=== PATIENT | male | born 1935 | race Caucasian/White ===

== ENCOUNTER 2016-09-02 21:25 | Inpatient (IN) | payer MEDICARE ==
[~2016-09-02] VITALS: Ht 162.6 cm; Wt 58.5 kg
[2016-09-02] MEDS ORDERED: CARV6.252 PO (21:38)
[2016-09-02] MEDS ORDERED: HYDR-4075 PO (21:38)
[2016-09-02] MEDS ORDERED: QUET25TA PO (21:38)
[2016-09-02] MEDS ORDERED: ACET325T53 PO (21:38)
[2016-09-02] MEDS ORDERED: FAMO-132 PO (21:38)
[2016-09-02] MEDS ORDERED: ONDA4VIA30 IV (21:38)
[2016-09-02 22:00] VITALS: BP 139/79
[2016-09-02] MEDS ORDERED: LORAZEPAM 0.5 MG TABLET PO PRN (22:30)
[2016-09-02] MEDS ORDERED: TEMAZEPAM 7.5 MG CAPSULE PO PRN (22:30)
[2016-09-02] MEDS ORDERED: MAGNESIUM HYDROXIDE 30 ML LIQUID UDC PO PRN (22:30)
[2016-09-02] MEDS ORDERED: MAG HYDROX/AL HYDROX/SIMETH 30 ML LIQUID UDC PO PRN (22:30)
[2016-09-02] MEDS ORDERED: ACETAMINOPHEN 325 MG TABLET PO PRN (22:30)
[2016-09-02] MEDS ORDERED: hydrALAZINE HCL 10 MG TABLET PO PRN (23:15)
[2016-09-03 07:30] VITALS: BP 135/89
[2016-09-03] MEDS: CARVEDILOL 6.25 MG TABLET PO SCH ×2 (08:56→17:20)
[2016-09-03] MEDS: FAMOTIDINE 20 MG TABLET PO SCH (08:56)
[2016-09-03] MEDS: SERTRALINE HCL 50 MG TABLET PO SCH (12:32)
[2016-09-03 15:18] VITALS: BP 126/89
[2016-09-03 20:00] VITALS: BP 125/78
[2016-09-03] MEDS: DONEPEZIL 5 MG TABLET PO SCH (20:16)
[2016-09-03] MEDS: QUETIAPINE FUMARATE 25 MG TABLET PO SCH (20:17)
[2016-09-04 07:11] LABS: BASOPHILS % (AUTO) 0.3 % (0.0-2.0); EOSINOPHILS # (AUTO) 0.3 K/uL (0.0-0.7); EOSINOPHILS % (AUTO) 2.8 % (0.0-7.0); HEMATOCRIT 42.5 % (40-50); HEMOGLOBIN 13.8 G/DL (14.0-18.0); LYMPHOCYTES # (AUTO) 2.4 K/UL (0.8-4.8); LYMPHOCYTES % (AUTO) 20.8 % (20.5-51.5); MEAN CORPUSCULAR HEMOGLOBIN 28.4 UUG (27.0-31.0); MEAN CORPUSCULAR HGB CONC 33 g/dL (32.0-37.0); MEAN CORPUSCULAR VOLUME 87.5 FL (82.0-92.0); MONOCYTES # (AUTO) 1.2 K/UL (0.1-1.30); MONOCYTES % (AUTO) 10.4 % (0.0-11.0); NEUTROPHILS # (AUTO) 7.6 K/UL (1.8-8.9); NEUTROPHILS % (AUTO) 65.7 % (38.5-71.5); PLATELET COUNT (AUTO) 258 K/UL (150-450); RED BLOOD CELL COUNT(AUTO) 4.86 MIL/UL (4.7-6.1); RED CELL DISTRIBUTION WIDTH 15.5 % (11.5-14.5); WHITE BLOOD COUNT (AUTO) 11.5 K/UL (4.0-11.2)
[2016-09-04 07:30] VITALS: BP 156/101
[2016-09-04 07:34] LABS: THYROID STIMULATING HORMONE 1.987 mIU/mL (0.358-3.740)
[2016-09-04 07:57] LABS: ALBUMIN 3.4 g/dL (3.4-5.0); BILIRUBIN,TOTAL 0.6 mg/dL (0.2-1.0); CALCIUM 9.7 mg/dL (8.5-10.1); CREATININE 1.1 mg/dL (0.6-1.3); MAGNESIUM 1.9 mg/dL (1.8-2.4); PHOSPHOROUS 3.8 mg/dL (2.5-4.9); POTASSIUM 4.2 mmol/L (3.5-5.1); TOTAL PROTEIN, SERUM 7.9 g/dL (6.4-8.2)
[2016-09-04] MEDS: FAMOTIDINE 20 MG TABLET PO SCH (08:16)
[2016-09-04] MEDS: CARVEDILOL 6.25 MG TABLET PO SCH ×2 (08:16→17:34)
[2016-09-04] MEDS: SERTRALINE HCL 50 MG TABLET PO SCH (12:01)
[2016-09-04 15:00] VITALS: BP 117/80
[2016-09-04] MEDS: QUETIAPINE FUMARATE 25 MG TABLET PO SCH (20:06)
[2016-09-04] MEDS: DONEPEZIL 5 MG TABLET PO SCH (20:06)
[2016-09-04 20:15] VITALS: BP 111/61
[2016-09-05 07:30] VITALS: BP 140/94
[2016-09-05] MEDS: CARVEDILOL 6.25 MG TABLET PO SCH ×2 (08:15→17:15)
[2016-09-05] MEDS: FAMOTIDINE 20 MG TABLET PO SCH (08:15)
[2016-09-05] MEDS: SERTRALINE HCL 50 MG TABLET PO SCH (12:49)
[2016-09-05 16:10] VITALS: BP 123/77
[2016-09-05 17:29] LABS: *BILIRUBIN,URIN NEGATIVE (NEGATIVE); *BLOOD, URINE NEGATIVE (NEGATIVE); *COLOR,URINE YELLOW (YELLOW); *KETONES,URINE NEGATIVE (NEGATIVE); *PROTEIN,URINE TRACE (NEGATIVE); *UROBILINOGEN,URINE 0.2 E.U./dl (NORMAL); LEUKOCYTE ESTERASE ,URINE 1+ (NEGATIVE); NITRITE, URINE NEGATIVE (NEGATIVE); UGLUCOSE NEGATIVE (NEGATIVE)
[2016-09-05 17:37] LABS: *CLARITY,URINE SLIGHTLY HAZY (CLEAR)
[2016-09-05 17:42] LABS: BACTERIA,URINE RARE /HPF (NONE SEEN); RBC,URINE 0-3 /HPF (0-3); SQUAMOUS EPITHELIAL CELL,UR FEW /HPF (NONE SEEN)
[2016-09-05] MEDS: DONEPEZIL 5 MG TABLET PO SCH (20:14)
[2016-09-05] MEDS: QUETIAPINE FUMARATE 25 MG TABLET PO SCH (20:14)
[2016-09-05] MEDS: MEMANTINE HCL 5 MG TABLET PO SCH (20:14)
[2016-09-05 20:30] VITALS: BP 136/76
[2016-09-06 07:40] VITALS: BP 135/81
[2016-09-06 08:19] LABS: ALBUMIN 2.8 g/dL (3.4-5.0); BILIRUBIN,TOTAL 0.3 mg/dL (0.2-1.0); CALCIUM 8.7 mg/dL (8.5-10.1); CREATININE 1.3 mg/dL (0.6-1.3); MAGNESIUM 1.8 mg/dL (1.8-2.4); PHOSPHOROUS 3.5 mg/dL (2.5-4.9); POTASSIUM 3.8 mmol/L (3.5-5.1); TOTAL PROTEIN, SERUM 6.7 g/dL (6.4-8.2)
[2016-09-06 08:22] LABS: BASOPHILS % (AUTO) 0.2 % (0.0-2.0); EOSINOPHILS # (AUTO) 0.3 K/uL (0.0-0.7); HEMOGLOBIN 12.1 G/DL (14.0-18.0); LYMPHOCYTES # (AUTO) 2.5 K/UL (0.8-4.8); MEAN CORPUSCULAR HEMOGLOBIN 28.6 UUG (27.0-31.0); MEAN CORPUSCULAR HGB CONC 33 g/dL (32.0-37.0); MEAN CORPUSCULAR VOLUME 86.9 FL (82.0-92.0); MONOCYTES # (AUTO) 0.8 K/UL (0.1-1.30); MONOCYTES % (AUTO) 8.1 % (0.0-11.0); NEUTROPHILS # (AUTO) 6.1 K/UL (1.8-8.9); NEUTROPHILS % (AUTO) 62.7 % (38.5-71.5); PLATELET COUNT (AUTO) 256 K/UL (150-450); RED CELL DISTRIBUTION WIDTH 15.4 % (11.5-14.5); WHITE BLOOD COUNT (AUTO) 9.7 K/UL (4.0-11.2)
[2016-09-06 08:34] LABS: RED BLOOD CELL COUNT(AUTO) 4.22 MIL/UL (4.7-6.1)
[2016-09-06 08:35] LABS: HEMATOCRIT 36.6 % (40-50)
[2016-09-06] MEDS: FAMOTIDINE 20 MG TABLET PO SCH (08:46)
[2016-09-06] MEDS: CARVEDILOL 6.25 MG TABLET PO SCH ×2 (08:46→17:53)
[2016-09-06] MEDS: CEPHALEXIN MONOHYDRATE 500 MG CAPSULE PO SCH ×2 (10:14→20:33)
[2016-09-06] MEDS: SERTRALINE HCL 50 MG TABLET PO SCH (12:27)
[2016-09-06 16:06] VITALS: BP 132/86
[2016-09-06] MEDS: MEMANTINE HCL 5 MG TABLET PO SCH (20:33)
[2016-09-06] MEDS: QUETIAPINE FUMARATE 25 MG TABLET PO SCH (20:33)
[2016-09-06] MEDS: DONEPEZIL 5 MG TABLET PO SCH (20:33)
[2016-09-06 20:38] VITALS: BP 143/94
[2016-09-07 07:30] VITALS: BP 170/87
[2016-09-07] MEDS: CEPHALEXIN MONOHYDRATE 500 MG CAPSULE PO SCH ×2 (08:35→20:11)
[2016-09-07] MEDS: FAMOTIDINE 20 MG TABLET PO SCH (08:35)
[2016-09-07] MEDS: CARVEDILOL 6.25 MG TABLET PO SCH ×2 (08:35→17:35)
[2016-09-07] MEDS: SERTRALINE HCL 50 MG TABLET PO SCH (12:41)
[2016-09-07 16:04] VITALS: BP 111/62
[2016-09-07] MEDS: DONEPEZIL 5 MG TABLET PO SCH (20:10)
[2016-09-07] MEDS: MEMANTINE HCL 5 MG TABLET PO SCH (20:11)
[2016-09-07] MEDS: QUETIAPINE FUMARATE 25 MG TABLET PO SCH (20:11)
[2016-09-07 20:19] VITALS: BP 122/82
[2016-09-08 07:30] VITALS: BP 152/96
[2016-09-08] MEDS: FAMOTIDINE 20 MG TABLET PO SCH (07:53)
[2016-09-08] MEDS: CEPHALEXIN MONOHYDRATE 500 MG CAPSULE PO SCH ×2 (07:53→20:02)
[2016-09-08] MEDS: CARVEDILOL 6.25 MG TABLET PO SCH ×2 (07:54→18:23)
[2016-09-08] MEDS: SERTRALINE HCL 50 MG TABLET PO SCH (13:07)
[2016-09-08 16:00] VITALS: BP 117/84
[2016-09-08 20:02] VITALS: BP 149/93
[2016-09-08] MEDS: DONEPEZIL 5 MG TABLET PO SCH (20:02)
[2016-09-08] MEDS: QUETIAPINE FUMARATE 25 MG TABLET PO SCH (20:02)
[2016-09-08] MEDS: MEMANTINE HCL 5 MG TABLET PO SCH (20:02)
[2016-09-09 07:30] VITALS: BP 147/90
[2016-09-09 08:25] VITALS: BP 142/70
[2016-09-09] MEDS: CARVEDILOL 6.25 MG TABLET PO SCH (08:25)
[2016-09-09] MEDS: FAMOTIDINE 20 MG TABLET PO SCH (08:26)
[2016-09-09] MEDS: CEPHALEXIN MONOHYDRATE 500 MG CAPSULE PO SCH (08:26)
[2016-09-09] MEDS: SERTRALINE HCL 50 MG TABLET PO SCH (13:37)
== END 2016-09-09 13:50 | DRG 885 ==
LOC: ER 21:25 → GPS 21:47
PROVIDERS: ADMIT Psychiatry & Neurology Psychosomatic Medicine; ATTEND Internal Medicine
DX: F29 Unspecified psychosis not due to a substance or known physiological condition (principal); F02.81 Dementia in other diseases classified elsewhere, unspecified severity, with behavioral disturbance; I11.0 Hypertensive heart disease with heart failure; E44.0 Moderate protein-calorie malnutrition; N39.0 Urinary tract infection, site not specified; R45.851 Suicidal ideations; F32.3 Major depressive disorder, single episode, severe with psychotic features; I50.30 Unspecified diastolic (congestive) heart failure; Z73.6 Limitation of activities due to disability; I10 Essential (primary) hypertension; D64.9 Anemia, unspecified; G30.9 Alzheimer's disease, unspecified; R91.8 Other nonspecific abnormal finding of lung field; E67.8 Other specified hyperalimentation; D72.829 Elevated white blood cell count, unspecified; R73.9 Hyperglycemia, unspecified; Z68.22 Body mass index [BMI] 22.0-22.9, adult
CPT/HCPCS: 36415; 71010; 82306; 83735; 84100; 84443; 85025; 87086; 93005; 93307; 97001; A4663

== ENCOUNTER 2016-10-05 17:36 | Emergency (ER) | payer MEDICARE ==
[~2016-10-05] VITALS: Ht 162.6 cm; Wt 59.0 kg
[~2016-10-05 17:36] MED LIST: ACET325T53 PO; CARV6.252 PO; FAMO-132 PO; HYDR-4075 PO; ONDA4VIA30 IV
[2016-10-05] MEDS ORDERED: MEMA10TA PO (18:00)
[2016-10-05] MEDS ORDERED: TEMA7.5C PO (18:00)
[2016-10-05] MEDS ORDERED: SERT25TA PO (18:00)
[2016-10-05] MEDS ORDERED: DONE10TA4 PO (18:00)
[2016-10-05] MEDS ORDERED: MAGN400O4 PO (18:00)
[2016-10-05] MEDS ORDERED: DOCU-170 PO (18:00)
[2016-10-05] MEDS ORDERED: CRAN400C PO (18:00)
[2016-10-05] MEDS ORDERED: ACET-2154 PO (18:00)
--- NOTE | 2016-10-05 18:00 | NUR ---
Assissted DR Copeland for rectal exam, OB collected and sent to lab.
[2016-10-05 18:11] LABS: BASOPHILS # (AUTO) 0.1 K/uL (0.0-8.0); BASOPHILS % (AUTO) 0.5 % (0.0-2.0); EOSINOPHILS # (AUTO) 0.4 K/uL (0.0-0.7); EOSINOPHILS % (AUTO) 2.4 % (0.0-7.0); HEMATOCRIT 36.3 % (40-50); HEMOGLOBIN 12.1 G/DL (14.0-18.0); LYMPHOCYTES # (AUTO) 2.3 K/UL (0.8-4.8); LYMPHOCYTES % (AUTO) 15.5 % (20.5-51.5); MEAN CORPUSCULAR HEMOGLOBIN 29.3 UUG (27.0-31.0); MEAN CORPUSCULAR HGB CONC 33 g/dL (32.0-37.0); MONOCYTES # (AUTO) 1.5 K/UL (0.1-1.30); MONOCYTES % (AUTO) 10.1 % (0.0-11.0); NEUTROPHILS # (AUTO) 10.4 K/UL (1.8-8.9); NEUTROPHILS % (AUTO) 71.5 % (38.5-71.5); PLATELET COUNT (AUTO) 362 K/UL (150-450); RED BLOOD CELL COUNT(AUTO) 4.12 MIL/UL (4.7-6.1); WHITE BLOOD COUNT (AUTO) 14.7 K/UL (4.0-11.2)
--- NOTE | 2016-10-05 18:31 | NUR ---
CALLED [facility] AND SPOKE TO CAYDEN PIRES PT GOING BACK TO FACILITY. CALLED EMR FOR TX, ETA IS 30 MIN. PT IS RESTING IN BED, NO C/O PAIN.
[2016-10-05 18:43] LABS: *OCCULT BLOOD STOOL NEGATIVE (NEGATIVE)
--- NOTE | 2016-10-05 19:04 | NUR ---
Patient discharged to home via AMBULANCE in stable conditon. Written and verbal after care instructions given. Patient verbalizes understanding of instructions. Report given to EMT.
== END 2016-10-05 19:06 | disposition home or self-care (01) ==
LOC: ER 17:38
DX: K64.9 Unspecified hemorrhoids (principal); F03.90 Unspecified dementia, unspecified severity, without behavioral disturbance, psychotic disturbance, mood disturbance, and anxiety; I10 Essential (primary) hypertension; F32.9 Major depressive disorder, single episode, unspecified
CPT/HCPCS: 36415; 85025; A4663

== ENCOUNTER 2017-03-27 19:12 | Inpatient (IN) | payer MEDICARE ==
[~2017-03-27] VITALS: Ht 165.1 cm; Wt 57.2 kg
[~2017-03-27 19:12] MED LIST changes: +ACET-2154 PO; +CRAN400C PO; +DOCU100C36 PO; +DONE10TA11 PO; -HYDR-4075 PO; +MAGN400O6 PO; +MEMA10TA PO; -ONDA4VIA30 IV; +SERT25TA PO; +TEMA7.5C PO
--- NOTE | 2017-03-27 19:52 | NUR ---
Patient BIB private ambulance from [facility] for abnormal labs. Per report, patient has ESBL in urine, facility paperwork indicates as well. Patient states no pain or complaint at this time except he has "anal pain." To room 5A.
[2017-03-27] MEDS ORDERED: IV NORMAL SALINE 500 ML BAG IV ONE (20:00)
[2017-03-27 20:34] LABS: BASOPHILS % (AUTO) 0.4 % (0.0-2.0); EOSINOPHILS # (AUTO) 0.2 K/uL (0.0-0.7); EOSINOPHILS % (AUTO) 2.1 % (0.0-7.0); HEMATOCRIT 32.9 % (40-50); HEMOGLOBIN 10.6 G/DL (14.0-18.0); LYMPHOCYTES # (AUTO) 2.8 K/UL (0.8-4.8); LYMPHOCYTES % (AUTO) 24.6 % (20.5-51.5); MEAN CORPUSCULAR HEMOGLOBIN 25.1 UUG (27.0-31.0); MEAN CORPUSCULAR HGB CONC 32 g/dL (32.0-37.0); MEAN CORPUSCULAR VOLUME 78.2 FL (82.0-92.0); MONOCYTES # (AUTO) 1.3 K/UL (0.1-1.30); MONOCYTES % (AUTO) 11.5 % (0.0-11.0); NEUTROPHILS # (AUTO) 7.1 K/UL (1.8-8.9); NEUTROPHILS % (AUTO) 61.4 % (38.5-71.5); PLATELET COUNT (AUTO) 420 K/UL (150-450); WHITE BLOOD COUNT (AUTO) 11.4 K/UL (4.0-11.2)
[2017-03-27 20:38] LABS: CARBON DIOXIDE 29 mmol/L (21-32); CHLORIDE 100 mmol/L (98-107); CREATININE 1.2 mg/dL (0.6-1.3); GLUCOSE 99 mg/dL (74-106); POTASSIUM 3.9 mmol/L (3.5-5.1); UREA NITROGEN, BLOOD 19 mg/dL (7-18)
[2017-03-27 20:44] LABS: ALANINE AMINOTRANSFERASE 18 U/L (16-63); ALKALINE PHOSPHATASE 138 U/L (50-136); ASPARTATE AMINOTRANSFERASE 20 U/L (15-37); BILIRUBIN,DIRECT 0.1 mg/dL (0.0-0.2); BILIRUBIN,TOTAL 0.2 mg/dL (0.2-1.0); TOTAL PROTEIN, SERUM 6.9 g/dL (6.4-8.2)
[2017-03-27 20:50] LABS: *BILIRUBIN,URIN NEGATIVE (NEGATIVE); *BLOOD, URINE 1+ (NEGATIVE); *CLARITY,URINE CLOUDY (CLEAR); *COLOR,URINE YELLOW (YELLOW); *KETONES,URINE NEGATIVE (NEGATIVE); *PROTEIN,URINE NEGATIVE (NEGATIVE); *UROBILINOGEN,URINE 0.2 E.U./dl (NORMAL); LEUKOCYTE ESTERASE ,URINE 3+ (NEGATIVE); NITRITE, URINE POSITIVE (NEGATIVE); UGLUCOSE NEGATIVE (NEGATIVE)
[2017-03-27 21:08] LABS: BACTERIA,URINE MANY /HPF (NONE SEEN); WBC,URINE 80-100 /HPF (0-3)
--- NOTE | 2017-03-27 21:25 | NUR ---
Patient provided urine specimen, patient was soiled at that time. During cleaning observed patient had rash throughout perineum (front and back) which was covered in cream. Patient additionally had tissue stuck in the daiper in the trip-anal area. Patient cleaned and dressed in hoispital gown at this time.
[2017-03-27] MEDS ORDERED: IMIPENEM/CILASTATIN SODIUM 1,000 MG in IV NORMAL SALINE 250 ML IV ONE (21:30)
[2017-03-27] MEDS ORDERED: FERR325T28 PO (21:37)
[2017-03-27] MEDS ORDERED: AMIN30LI2 PO (21:37)
[2017-03-27] MEDS ORDERED: CRAN405C PO (21:37)
[2017-03-27] MEDS ORDERED: HYDROCODONE/APAP 5-325MG TABLET PO PRN (22:15)
[2017-03-27] MEDS ORDERED: MAGNESIUM HYDROXIDE 30 ML LIQUID UDC PO PRN (22:15)
[2017-03-27] MEDS ORDERED: Z GUARD REMEDY PASTE 57 GM TUBE TOP PRN (22:15)
[2017-03-27] MEDS ORDERED: ACETAMINOPHEN 325 MG TABLET PO PRN ×3 (22:15)
[2017-03-27] MEDS ORDERED: ONDANSETRON 4 MG/2 ML VIAL IV PRN (22:15)
[2017-03-27] MEDS ORDERED: MEROPENEM 1 G VIAL IV ONE (22:42)
[2017-03-27] MEDS ORDERED: MEROPENEM 1,000 MG in IV NORMAL SALINE 250 ML IV ONE (22:45)
--- NOTE | 2017-03-27 23:00 | NUR ---
Pt. admitted to TELE, under care of Dr. Matos Belongs List completed
--- NOTE | 2017-03-27 23:15 | NUR ---
Pt arrived alert awake oriented to self and . in telemetry sinus rhythm. Pt noted BP 172/69. No s/s of acute distress. Pt noted with redness to sacral and groin area. Able to follow simple commands. Awaiting MD orders. Continuing or Merrem IV antibiotics from ER. Denies pain or discomfort at this time. 2 side rails raised and call light placed within reach.
[2017-03-28 00:03] VITALS: BP 172/96
--- NOTE | 2017-03-28 00:44 | NUR ---
New order received from Dr Kilgore. Clonidine 0.1mg PO x 1. noted and carried out.
[2017-03-28] MEDS ORDERED: CLONIDINE HCL 0.1 MG TABLET PO ONE (00:45)
[2017-03-28] MEDS: IV NS 1000 ML 1,000 ML IV PRN (03:50)
[2017-03-28] MEDS ORDERED: MEROPENEM 1 G VIAL IV ONE (05:42)
[2017-03-28] MEDS ORDERED: MEROPENEM 1 G in IV NORMAL SALINE 100 ML IV SCH (06:00)
[2017-03-28 06:58] LABS: BASOPHILS % (AUTO) 0.4 % (0.0-2.0); EOSINOPHILS # (AUTO) 0.2 K/uL (0.0-0.7); EOSINOPHILS % (AUTO) 2.4 % (0.0-7.0); HEMATOCRIT 31.6 % (36.7-47.1); HEMOGLOBIN 10.1 g/dL (12.5-16.3); LYMPHOCYTES # (AUTO) 3.2 K/uL (20.0-40.0); LYMPHOCYTES % (AUTO) 30.3 % (20.5-51.5); MEAN CORPUSCULAR HEMOGLOBIN 24.7 uug (23.8-33.4); MEAN CORPUSCULAR HGB CONC 32 g/dL (32.5-36.3); MEAN CORPUSCULAR VOLUME 77.6 fL (73.0-96.2); MONOCYTES # (AUTO) 1.4 K/uL (2.0-10.0); MONOCYTES % (AUTO) 13.1 % (0.0-11.0); NEUTROPHILS # (AUTO) 5.6 K/uL (1.8-8.9); NEUTROPHILS % (AUTO) 53.8 % (38.5-71.5); PLATELET COUNT (AUTO) 349 K/uL (152-348); RED BLOOD CELL COUNT(AUTO) 4.08 MIL/uL (4.06-5.63); WHITE BLOOD COUNT (AUTO) 10.5 K/uL (3.6-10.2)
[2017-03-28 07:23] LABS: CARBON DIOXIDE 27 mmol/L (21-32); CHLORIDE 102 mmol/L (98-107); CREATININE 0.9 mg/dL (0.6-1.3); GLUCOSE 82 mg/dL (74-106); PHOSPHOROUS 3.7 mg/dL (2.5-4.9); POTASSIUM 3.7 mmol/L (3.5-5.1); UREA NITROGEN, BLOOD 15 mg/dL (7-18)
[2017-03-28] MEDS: PROTEIN SUPPLEMENT (PROSTAT) 30 ML LIQUID PO SCH ×2 (08:00→17:25)
[2017-03-28] MEDS: SERTRALINE HCL 50 MG TABLET PO SCH (08:10)
[2017-03-28] MEDS: FAMOTIDINE 20 MG TABLET PO SCH (08:10)
[2017-03-28] MEDS: CARVEDILOL 6.25 MG TABLET PO SCH ×2 (08:11→17:05)
[2017-03-28] MEDS ORDERED: Medication Not On Formulary EA (Amino Acids/Protein Hydrolys (Pro-Stat Liquid) 30 ML) PO SCH (09:00)
[2017-03-28] MEDS ORDERED: Medication Not On Formulary EA (Sertraline Hcl (Zoloft) 1 TAB) PO SCH (09:00)
[2017-03-28] MEDS ORDERED: Medication Not On Formulary EA (Cranberry Extract (Cranberry) 405 MG) PO SCH (09:00)
[2017-03-28 11:00] VITALS: BP 117/73
--- NOTE | 2017-03-28 13:41 | NUR ---
WOUND CARE CONSULT: PT AMBULATES TO BATHROOM PER NURSING STAFF BUT INCONTINENT AT TIMES. VERY RED RASH NOTED TO PERINEUM, GROIN AREAS AND BUTTOCKS, PRESENT ON ADMISSION. RECOMMENDATIONS MADE FOR CARE OF RASH AND SKIN PROTECTION. DISCUSSED WITH NURSING STAFF. WILL SEE PRN. LLOYD IN AGREEMENT WITH PLAN OF CARE. Addendum: 03/28/17 at 1342 by CHANDANA ALVAREZ RN Amended: Links added.
[2017-03-28] MEDS: MEROPENEM 1 G in IV NORMAL SALINE 100 ML IV SCH ×2 (14:37→21:42)
[2017-03-28] MEDS: CLOTRIMAZOLE/BETAMET DIPROP CREAM 15 GM TUBE TOP SCH ×2 (14:38→21:42)
[2017-03-28 15:28] VITALS: BP 145/79
[2017-03-28] MEDS: FERROUS SULFATE 325 MG TABEC PO SCH (17:03)
--- NOTE | 2017-03-28 17:36 | NUR ---
PT CONFUSED, AOX1, AMBULATORY, ON FALL PRECAUTIONS, BED AT LOWEST LOCKED POSITION, BED ALARM SET. PT HAS HAD SEVERAL BM ON THE FLOOR, ONE OF THE BM HAD BLOOD IN STOOL, DOCTOR NOTIFIED AND STOOL FOR OB SENT, RESULTS PENDING. PT IS REORIENTED CONSTANTLY. WOUND CARE NURSE CAME AND EVALUATED THE PT, WOUND CARE DONE ORDERED.
[2017-03-28 19:30] VITALS: BP 146/85
--- NOTE | 2017-03-28 19:30 | NUR ---
Pt in room alert with confusion. No s/s of acute distress. Able to follow simple commands. Pt needs constant reminders and reorientation. No new orders at this time. 3 side rails raised and bed locked. Denies any pain or discomfort at his time. Continue to monitor.
[2017-03-28] MEDS: MEMANTINE HCL 10 MG TABLET PO SCH (21:41)
[2017-03-28] MEDS: DONEPEZIL 10 MG TABLET PO SCH (21:41)
--- NOTE | 2017-03-29 01:00 | NUR ---
Pt in room asleep in no acute distress. No reaction to current Merrem IV abx. No active loose BM at this time. Continue to monitor. Bed alarm on.
[2017-03-29] MEDS: IV NS 1000 ML 1,000 ML IV PRN (02:05)
[2017-03-29] MEDS: MEROPENEM 1 G in IV NORMAL SALINE 100 ML IV SCH ×3 (05:26→21:00)
[2017-03-29 07:10] LABS: *OCCULT BLOOD STOOL POSITIVE (NEGATIVE)
--- NOTE | 2017-03-29 08:00 | NUR ---
Fall precaution and isolation precaution for esbl urine implemented. Bed alarm on pt near nursing station. IV on left wrist #22 intact. Call light is within reach.
[2017-03-29] MEDS: FAMOTIDINE 20 MG TABLET PO SCH (08:37)
[2017-03-29] MEDS: SERTRALINE HCL 50 MG TABLET PO SCH (08:37)
[2017-03-29] MEDS: FERROUS SULFATE 325 MG TABEC PO SCH ×2 (08:37→16:03)
[2017-03-29] MEDS: CLOTRIMAZOLE/BETAMET DIPROP CREAM 15 GM TUBE TOP SCH ×2 (08:42→20:26)
[2017-03-29] MEDS: CARVEDILOL 6.25 MG TABLET PO SCH ×2 (08:42→16:03)
[2017-03-29] MEDS: PROTEIN SUPPLEMENT (PROSTAT) 30 ML LIQUID PO SCH ×2 (08:43→16:03)
--- NOTE | 2017-03-29 09:00 | NUR ---
Applied lotrisone cream as ordered by wound care nurse. Groin and buttocks were both bright red. Instructed COMPUTATIONAL CHEMIST to keep skin dry at all times. Established hourly rounding on pt. PT is in no acute distress. PT forgetful at times. Call light is within reach.
[2017-03-29 11:14] VITALS: BP 115/70
[2017-03-29 15:38] VITALS: BP 131/77
--- NOTE | 2017-03-29 17:02 | NUR ---
Pt is in no acute distress. PT cooperative with treatments and taking his medications. PT denies any c/o pain. Call light is within reach.
[2017-03-29 19:25] VITALS: BP 154/91
--- NOTE | 2017-03-29 19:30 | NUR ---
Pt in alert awake in room needing constant reorientation. No s/s of acute distress. Bed alarm on with 3 side rails up. Denies any pain or discomfort at this time.
[2017-03-29] MEDS: MEMANTINE HCL 10 MG TABLET PO SCH (20:25)
[2017-03-29] MEDS: DONEPEZIL 10 MG TABLET PO SCH (20:25)
[2017-03-30] MEDS: IV NS 1000 ML 1,000 ML IV PRN (00:46)
--- NOTE | 2017-03-30 01:00 | NUR ---
Pt asleep at this time. No reaction to current IV abx therapy. Continue to monitor.
[2017-03-30 04:00] VITALS: BP 146/80
--- NOTE | 2017-03-30 05:00 | NUR ---
Pt in room in no acute distress. No s/s of increased weakness to upper or lower extremities. Continue to monitor. Currently on Merrem IV abx. Bed alarm on.
[2017-03-30] MEDS: MEROPENEM 1 G in IV NORMAL SALINE 100 ML IV SCH ×2 (05:08→14:09)
[2017-03-30] MEDS: SERTRALINE HCL 50 MG TABLET PO SCH (09:02)
[2017-03-30] MEDS: FAMOTIDINE 20 MG TABLET PO SCH (09:02)
[2017-03-30] MEDS: FERROUS SULFATE 325 MG TABEC PO SCH ×2 (09:02→17:32)
[2017-03-30] MEDS: PROTEIN SUPPLEMENT (PROSTAT) 30 ML LIQUID PO SCH ×2 (09:03→17:35)
[2017-03-30] MEDS: CLOTRIMAZOLE/BETAMET DIPROP CREAM 15 GM TUBE TOP SCH (09:04)
[2017-03-30] MEDS: CARVEDILOL 6.25 MG TABLET PO SCH ×2 (09:04→17:37)
[2017-03-30 11:09] VITALS: BP 128/68
[2017-03-30 15:09] VITALS: BP 119/75
[2017-03-30 15:54] LABS: BASOPHILS % (AUTO) 0.2 % (0.0-2.0); EOSINOPHILS # (AUTO) 0.2 K/uL (0.0-0.7); EOSINOPHILS % (AUTO) 1.5 % (0.0-7.0); HEMATOCRIT 31.1 % (40-50); HEMOGLOBIN 9.9 G/DL (14.0-18.0); LYMPHOCYTES # (AUTO) 2.4 K/UL (0.8-4.8); LYMPHOCYTES % (AUTO) 20.2 % (20.5-51.5); MEAN CORPUSCULAR HEMOGLOBIN 25.1 UUG (27.0-31.0); MEAN CORPUSCULAR HGB CONC 32 g/dL (32.0-37.0); MEAN CORPUSCULAR VOLUME 78.9 FL (82.0-92.0); MONOCYTES # (AUTO) 1.2 K/UL (0.1-1.30); MONOCYTES % (AUTO) 10.1 % (0.0-11.0); NEUTROPHILS # (AUTO) 8.1 K/UL (1.8-8.9); PLATELET COUNT (AUTO) 413 K/UL (150-450); RED BLOOD CELL COUNT(AUTO) 3.95 MIL/UL (4.7-6.1); WHITE BLOOD COUNT (AUTO) 11.9 K/UL (4.0-11.2)
[2017-03-30 17:37] VITALS: BP 171/95
--- NOTE | 2017-03-30 18:32 | NUR ---
Patient been discharge home in safe and stable conditions. No s/s of distress noted. No c/o of pain. Patient was was cooperative with the treatment and interventions. Discharge instructions were signed. IV was kept per facility request to continue antibiotics. Patient was picked up by ambulance in stable conditions. Report was given to [facility]. All his need were met by the staff.
== END 2017-03-30 18:38 | DRG 689 ==
LOC: ER 19:13 → TELE 22:48 → MED 03-28 18:06
PROVIDERS: ADMIT Internal Medicine; ATTEND Internal Medicine
DX: N39.0 Urinary tract infection, site not specified (principal); G92 Toxic encephalopathy; K92.2 Gastrointestinal hemorrhage, unspecified; F03.90 Unspecified dementia, unspecified severity, without behavioral disturbance, psychotic disturbance, mood disturbance, and anxiety; D50.9 Iron deficiency anemia, unspecified; F41.9 Anxiety disorder, unspecified; F32.9 Major depressive disorder, single episode, unspecified; K21.9 Gastro-esophageal reflux disease without esophagitis; K59.09 Other constipation; Z16.12 Extended spectrum beta lactamase (ESBL) resistance; Z79.899 Other long term (current) drug therapy; R53.1 Weakness; I10 Essential (primary) hypertension; M19.90 Unspecified osteoarthritis, unspecified site
CPT/HCPCS: 36415; 70030-TC; 71010; 83605; 83735; 84100; 85025; 85730; 87040; 87086; 93005; 97116; 97530; A4663; J0743; J2185; J3490; J7030; J7040; J7050

== ENCOUNTER 2017-04-10 13:14 | Inpatient (IN) | payer MEDICARE ==
[~2017-04-10] VITALS: Ht 167.6 cm; Wt 54.4 kg
[~2017-04-10 13:14] MED LIST changes: +AMIN30LI2 PO; -CRAN400C PO; +CRAN405C PO; -DOCU100C36 PO; +FERR325T28 PO; -TEMA7.5C PO
[2017-04-10] MEDS ORDERED: DOCU100T2 PO (13:26)
--- NOTE | 2017-04-10 14:00 | NUR ---
Dr Rojas performed rectal exam on pt, hemostat stool sample collected by , sent to LAB.
[2017-04-10 14:02] LABS: BASOPHILS % (AUTO) 0.3 % (0.0-2.0); EOSINOPHILS # (AUTO) 0.3 K/uL (0.0-0.7); EOSINOPHILS % (AUTO) 2.1 % (0.0-7.0); HEMATOCRIT 35.6 % (36.7-47.1); HEMOGLOBIN 11.4 g/dL (12.5-16.3); LYMPHOCYTES # (AUTO) 2.9 K/uL (20.0-40.0); LYMPHOCYTES % (AUTO) 23.1 % (20.5-51.5); MEAN CORPUSCULAR HEMOGLOBIN 25.6 uug (23.8-33.4); MEAN CORPUSCULAR HGB CONC 32 g/dL (32.5-36.3); MEAN CORPUSCULAR VOLUME 80.3 fL (73.0-96.2); MONOCYTES # (AUTO) 1.9 K/uL (2.0-10.0); MONOCYTES % (AUTO) 15.3 % (0.0-11.0); NEUTROPHILS # (AUTO) 7.3 K/uL (1.8-8.9); NEUTROPHILS % (AUTO) 59.2 % (38.5-71.5); PLATELET COUNT (AUTO) 375 K/uL (152-348); RED BLOOD CELL COUNT(AUTO) 4.43 MIL/uL (4.06-5.63); WHITE BLOOD COUNT (AUTO) 12.4 K/uL (3.6-10.2)
[2017-04-10 14:15] LABS: *OCCULT BLOOD STOOL POSITIVE (NEGATIVE)
[2017-04-10 14:20] LABS: CARBON DIOXIDE 29 mmol/L (21-32); CHLORIDE 100 mmol/L (98-107); CREATININE 1.1 mg/dL (0.6-1.3); GLUCOSE 91 mg/dL (74-106); POTASSIUM 3.8 mmol/L (3.5-5.1); UREA NITROGEN, BLOOD 20 mg/dL (7-18)
[2017-04-10 14:25] LABS: ALANINE AMINOTRANSFERASE 14 U/L (16-63); ALKALINE PHOSPHATASE 149 U/L (50-136); ASPARTATE AMINOTRANSFERASE 16 U/L (15-37); BILIRUBIN,DIRECT 0.1 mg/dL (0.0-0.2); BILIRUBIN,TOTAL 0.4 mg/dL (0.2-1.0); LIPASE 99 U/L (73-393); TOTAL PROTEIN, SERUM 6.9 g/dL (6.4-8.2)
[2017-04-10 14:31] LABS: BAND % (MANUAL) 8 % (0-10); EOSINOPHILS % (MANUAL) 4 % (0-8); LYMPHOCYTES % (MANUAL) 25 % (20-40); MONOCYTES % (MANUAL) 12 % (2-10); NEUTROPHILS % (MANUAL) 51 % (42-75)
[2017-04-10] MEDS ORDERED: ONDANSETRON 4 MG/2 ML VIAL IV PRN (15:15)
[2017-04-10] MEDS ORDERED: PANTOPRAZOLE SODIUM 40 MG VIAL IV ONE (15:15)
--- NOTE | 2017-04-10 15:15 | NUR ---
PT REFUSED PROTONIX BUT AGREED TO TAKE THE 2100 DOSE LATER ON [facility].
--- NOTE | 2017-04-10 15:15 | NUR ---
belonging list completed, and placed in the chart. MRSA swab collected and send to lab.
--- NOTE | 2017-04-10 15:28 | NUR ---
PT ARRIVED ON THE UNIT CALM, COOPERATIVE, AOX1, CONFUSED, VITAL SIGNS STABLE. BROUGHT IN BELONGINGS, PT CAME IN FROM [facility]. PT SHOWS NO SIGNS OF DISTRESS. PICTURES OF SKIN WERE TAKEN AND PLACED INTO CHART. PT NPO PER DOCTORS ORDER.
[2017-04-10 15:35] VITALS: BP 147/91
[2017-04-10] MEDS: IV NS 1000 ML 1,000 ML IV PRN (18:21)
--- NOTE | 2017-04-10 18:54 | NUR ---
PT IS OBSERVED RESTING, HAS NS RUNNING, GAUGE IS INTACT AND PATENT, PT IS AOX1 BUT CAN ANSWER SIMPLE QUESTIONS. PT IS NPO BECAUSE PT MAY HAVE A EGD OR COLONOSCOPY DONE. PT HAS NO SIGNS OF RESPIRATORY DISTRESS AT THIS TIME. VITAL SIGNS STABLE.
[2017-04-10 20:00] VITALS: BP 153/95
--- NOTE | 2017-04-10 20:00 | NUR ---
RECEIVED PATIENT ASLEEP IN BED. NO S/S OF PAIN OR DISCOMFORT. NO FACIAL GRIMACE NOTED. NO RESP. DISTRESS NOTED. IVF INFUSING WELL TO RIGHT FA. ON TELE SR WITH FREQUENT PVC'S. BED ALARM ON. CALL LIGHT IN REACH. ALL NEEDS ATTENDED. WILL CONTINUE TO MONITOR AND ASSESS.
[2017-04-10] MEDS: PANTOPRAZOLE SODIUM 40 MG VIAL IV SCH (20:59)
[2017-04-11 00:18] VITALS: BP 132/82
--- NOTE | 2017-04-11 03:00 | NUR ---
PATIENT AWAKE IN BED, DIAPER CHANGE AND SKIN CARE PROVIDED. PATIENT URINATED AND HAD LOOSE BM. SOME BLOOD NOTED IN DIAPER. WILL CONTINUE TO MONITOR. ALL NEEDS ATTENDED.
[2017-04-11 04:00] VITALS: BP 126/92
[2017-04-11] MEDS: IV NS 1000 ML 1,000 ML IV PRN ×2 (05:02→18:47)
--- NOTE | 2017-04-11 06:00 | NUR ---
IV HEPLOCK NOTED TO RIGHT FA, LEAKING AND INFILTRATED. REMOVED AND NEW IV H/L STARTED TO RIGHT WRIST #20 GAUGE. VSS. PATIENT SLEPT WELL THROUGHOUT THE NIGHT. DENIES PAIN OR DISCOMFORT. NO RESP. DISTRESS NOTED. ON TELE SR WITH FREQUENT PVC'S. BED ALARM ON. CALL LIGHT IN REACH. ALL NEEDS ATTENDED.
[2017-04-11 06:15] LABS: BASOPHILS # (AUTO) 0.1 K/uL (0.0-8.0); BASOPHILS % (AUTO) 0.6 % (0.0-2.0); EOSINOPHILS # (AUTO) 0.3 K/uL (0.0-0.7); EOSINOPHILS % (AUTO) 2.4 % (0.0-7.0); HEMOGLOBIN 10.6 g/dL (12.5-16.3); LYMPHOCYTES % (AUTO) 25.4 % (20.5-51.5); MEAN CORPUSCULAR HEMOGLOBIN 25.6 uug (23.8-33.4); MEAN CORPUSCULAR HGB CONC 32 g/dL (32.5-36.3); MEAN CORPUSCULAR VOLUME 79.9 fL (73.0-96.2); MONOCYTES # (AUTO) 1.6 K/uL (2.0-10.0); MONOCYTES % (AUTO) 13.1 % (0.0-11.0); NEUTROPHILS % (AUTO) 58.5 % (38.5-71.5); PLATELET COUNT (AUTO) 354 K/uL (152-348); RED BLOOD CELL COUNT(AUTO) 4.12 MIL/uL (4.06-5.63)
[2017-04-11 06:31] LABS: BILIRUBIN,DIRECT 0.2 mg/dL (0.0-0.2); BILIRUBIN,TOTAL 0.4 mg/dL (0.2-1.0)
[2017-04-11 07:16] LABS: *BILIRUBIN,URIN NEGATIVE (NEGATIVE); *BLOOD, URINE 2+ (NEGATIVE); *CLARITY,URINE CLEAR (CLEAR); *COLOR,URINE YELLOW (YELLOW); *KETONES,URINE NEGATIVE (NEGATIVE); *PROTEIN,URINE 1+ (NEGATIVE); *UROBILINOGEN,URINE 0.2 E.U./dl (NORMAL); LEUKOCYTE ESTERASE ,URINE 1+ (NEGATIVE); NITRITE, URINE NEGATIVE (NEGATIVE); UGLUCOSE NEGATIVE (NEGATIVE)
[2017-04-11 07:32] LABS: BACTERIA,URINE FEW /HPF (NONE SEEN); SQUAMOUS EPITHELIAL CELL,UR FEW /HPF (NONE SEEN)
--- NOTE | 2017-04-11 07:39 | NUR ---
Awake, alert, pleasant. IVF infusing. NPO reinstructed. Bed alarm on
[2017-04-11] MEDS: PANTOPRAZOLE SODIUM 40 MG VIAL IV SCH ×2 (08:32→20:02)
[2017-04-11 11:10] VITALS: BP 147/93
[2017-04-11] MEDS ORDERED: NYSTATIN POWDER 15 GM BOTTLE TOP SCH (12:30)
--- NOTE | 2017-04-11 13:00 | NUR ---
Noted bloody loose stool, patient got up , attempted to go the bathroom. Assisted back to bed. Incontinence care done. Noted excoriation of perianal area. With orders for Nystatin cream, applied
[2017-04-11] MEDS: NYSTATIN CREAM 30 GM TUBE TOP SCH ×2 (14:05→20:03)
[2017-04-11 15:19] VITALS: BP 134/92
--- NOTE | 2017-04-11 18:00 | NUR ---
Called Dr. Christensen to follow up GI consult, will see patient tomorrow.Clear liquid diet started.
[2017-04-11 20:00] VITALS: BP 121/74
[2017-04-12 05:43] VITALS: BP 116/73
--- NOTE | 2017-04-12 06:40 | NUR ---
nsg: no acute distress noted. denies discomfort. started on clear liq last night. had 2 episodes of bowel movement, loose, mucoid, with tinged of red blood. cont to monitor.
--- NOTE | 2017-04-12 08:00 | NUR ---
AWAKE CONFUSED FORGETFUL BUT ABLE TO FOLLOW SOME SIMPLE DIRECTION NO SOB OR PAIN ON FALL ;/ASPIRATION PRECAUTION BED ALARM ON AND CALL LIGHT IN REACH
[2017-04-12] MEDS: PANTOPRAZOLE SODIUM 40 MG VIAL IV SCH ×2 (08:44→20:26)
[2017-04-12] MEDS: ACETAMINOPHEN 325 MG TABLET PO PRN (08:44)
[2017-04-12] MEDS: NYSTATIN CREAM 30 GM TUBE TOP SCH ×2 (08:45→20:26)
[2017-04-12] MEDS: Z GUARD REMEDY PASTE 57 GM TUBE TOP PRN (08:45)
[2017-04-12] MEDS: IV NS 1000 ML 1,000 ML IV PRN ×2 (09:00→20:24)
[2017-04-12 10:37] LABS: IRON, SERUM 52 ug/dL (50-175)
[2017-04-12 11:14] LABS: BASOPHILS % (AUTO) 0.3 % (0.0-2.0); EOSINOPHILS # (AUTO) 0.3 K/uL (0.0-0.7); EOSINOPHILS % (AUTO) 2.1 % (0.0-7.0); HEMATOCRIT 33.1 % (36.7-47.1); HEMOGLOBIN 10.6 g/dL (12.5-16.3); LYMPHOCYTES # (AUTO) 2.6 K/uL (20.0-40.0); LYMPHOCYTES % (AUTO) 19.9 % (20.5-51.5); MEAN CORPUSCULAR HGB CONC 32 g/dL (32.5-36.3); MEAN CORPUSCULAR VOLUME 81.6 fL (73.0-96.2); MONOCYTES # (AUTO) 1.2 K/uL (2.0-10.0); MONOCYTES % (AUTO) 9.5 % (0.0-11.0); NEUTROPHILS % (AUTO) 68.2 % (38.5-71.5); PLATELET COUNT (AUTO) 342 K/uL (152-348); RED BLOOD CELL COUNT(AUTO) 4.05 MIL/uL (4.06-5.63); WHITE BLOOD COUNT (AUTO) 13.2 K/uL (3.6-10.2)
[2017-04-12] MEDS: CEFTRIAXONE 1 G in IV DEXTROSE 5% 50 ML IV SCH (11:46)
[2017-04-12 11:50] LABS: ALANINE AMINOTRANSFERASE 12 U/L (16-63); ALKALINE PHOSPHATASE 125 U/L (50-136); ASPARTATE AMINOTRANSFERASE 24 U/L (15-37); BILIRUBIN,TOTAL 0.4 mg/dL (0.2-1.0); CARBON DIOXIDE 22 mmol/L (21-32); CHLORIDE 104 mmol/L (98-107); CREATININE 1.2 mg/dL (0.6-1.3); GLUCOSE 151 mg/dL (74-106); MAGNESIUM 1.8 mg/dL (1.8-2.4); PHOSPHOROUS 2.9 mg/dL (2.5-4.9); POTASSIUM 3.5 mmol/L (3.5-5.1); TOTAL PROTEIN, SERUM 5.7 g/dL (6.4-8.2); UREA NITROGEN, BLOOD 13 mg/dL (7-18)
[2017-04-12 12:00] VITALS: BP 113/67
[2017-04-12] MEDS ORDERED: Medication Not On Formulary EA (Docusate Sodium 100 MG) PO SCH (15:30)
[2017-04-12] MEDS ORDERED: Medication Not On Formulary EA (Sertraline Hcl (Zoloft) 1 TAB) PO SCH (15:30)
[2017-04-12 16:18] VITALS: BP 122/74
--- NOTE | 2017-04-12 18:00 | NUR ---
HEMODYNAMIC STATUS STABLE PAIN UNDER CONTROL SAFETY MEASURE PROVIDED CALL LIGHT IN REACH AND BED ALARM ON
--- NOTE | 2017-04-12 20:00 | NUR ---
RECEIVED PATIENT AWAKE IN BED. A/O X2, BUT VERY FORGETFUL. DENIES PAIN OR DISCOMFORT. NO RESP. DISTRESS NOTED. IVF INFUSING WELL TO RIGHT WRIST. PATIENT ON CLEAR LIQUIDS. CALL LIGHT IN REACH. ALL NEEDS ATTENDED. WILL CONTINUE TO MONITOR AND ASSESS.
[2017-04-12] MEDS: DONEPEZIL 10 MG TABLET PO SCH (20:25)
[2017-04-12] MEDS: MEMANTINE HCL 10 MG TABLET PO SCH (20:25)
[2017-04-12 21:01] VITALS: BP 146/85
[2017-04-13 04:00] VITALS: BP 121/97
--- NOTE | 2017-04-13 06:35 | NUR ---
PATIENT AWAKE IN BED. SLEPT WELL. DENIES PAIN. IVF INFUSING WELL. VSS. BED ALARM ON. CALL LIGHT IN REACH. ALL NEEDS ATTENDED. WILL CONTINUE TO MONITOR.
[2017-04-13 07:08] LABS: BASOPHILS % (AUTO) 0.2 % (0.0-2.0); EOSINOPHILS # (AUTO) 0.5 K/uL (0.0-0.7); EOSINOPHILS % (AUTO) 4.3 % (0.0-7.0); HEMATOCRIT 32.7 % (36.7-47.1); HEMOGLOBIN 10.6 g/dL (12.5-16.3); LYMPHOCYTES # (AUTO) 2.4 K/uL (20.0-40.0); LYMPHOCYTES % (AUTO) 20.9 % (20.5-51.5); MEAN CORPUSCULAR HGB CONC 33 g/dL (32.5-36.3); MEAN CORPUSCULAR VOLUME 79.9 fL (73.0-96.2); MONOCYTES # (AUTO) 1.2 K/uL (2.0-10.0); MONOCYTES % (AUTO) 10.4 % (0.0-11.0); NEUTROPHILS # (AUTO) 7.4 K/uL (1.8-8.9); NEUTROPHILS % (AUTO) 64.2 % (38.5-71.5); PLATELET COUNT (AUTO) 341 K/uL (152-348); RED BLOOD CELL COUNT(AUTO) 4.09 MIL/uL (4.06-5.63); WHITE BLOOD COUNT (AUTO) 11.6 K/uL (3.6-10.2)
[2017-04-13 07:40] LABS: ALANINE AMINOTRANSFERASE 10 U/L (16-63); ALKALINE PHOSPHATASE 117 U/L (50-136); ASPARTATE AMINOTRANSFERASE 19 U/L (15-37); BILIRUBIN,TOTAL 0.3 mg/dL (0.2-1.0); CARBON DIOXIDE 27 mmol/L (21-32); CHLORIDE 105 mmol/L (98-107); CHOLESTEROL 105 mg/dL (<200); GLUCOSE 86 mg/dL (74-106); HDL CHOLESTEROL 34 mg/dL (40-60); MAGNESIUM 1.6 mg/dL (1.8-2.4); PHOSPHOROUS 2.9 mg/dL (2.5-4.9); POTASSIUM 3.4 mmol/L (3.5-5.1); TOTAL PROTEIN, SERUM 5.6 g/dL (6.4-8.2); TRIGLYCERIDES 70 MG/DL (30-150); UREA NITROGEN, BLOOD 8 mg/dL (7-18)
[2017-04-13 07:46] LABS: THYROID STIMULATING HORMONE 1.023 mIU/mL (0.358-3.740)
--- NOTE | 2017-04-13 08:00 | NUR ---
AWAKE CONFUSED ORTX2 COOPERATE WELL NO ACUTE DISTRESS OR PAIN ON FALL PRECAUTION BED ALARM ON AND CALL LIGHT IN REACH
[2017-04-13] MEDS: PANTOPRAZOLE SODIUM 40 MG VIAL IV SCH ×2 (08:02→20:53)
[2017-04-13] MEDS: SERTRALINE HCL 50 MG TABLET PO SCH (08:02)
[2017-04-13] MEDS: IV NS 1000 ML 1,000 ML IV PRN ×2 (08:04→20:25)
[2017-04-13] MEDS: NYSTATIN CREAM 30 GM TUBE TOP SCH ×2 (08:11→20:23)
[2017-04-13] MEDS: Z GUARD REMEDY PASTE 57 GM TUBE TOP PRN (08:11)
[2017-04-13] MEDS: DOCUSATE SODIUM 100 MG CAPSULE PO SCH (08:12)
--- NOTE | 2017-04-13 10:00 | NUR ---
Kevin JONES WAS INFORM OF PATIENT C/O HUNGRY AND DR BOURNE DOES NOT COME TO SEE PATIENT YET NEW ORDER DIET ADV RECIEVED
[2017-04-13] MEDS ORDERED: POTASSIUM CHLORIDE 50 ML IV SCH (10:15)
[2017-04-13] MEDS ORDERED: POTASSIUM CHLORIDE 20 MEQ TAB.PRT.SR PO ONE (10:15)
[2017-04-13] MEDS ORDERED: MAGNESIUM SULFATE/D5W 100 ML IV SCH (10:15)
[2017-04-13 11:55] VITALS: BP 110/70
[2017-04-13] MEDS: CEFTRIAXONE 1 G in IV DEXTROSE 5% 50 ML IV SCH (12:06)
[2017-04-13] MEDS ORDERED: MAGNESIUM CITRATE 296 ML BOTTLE PO ONE (12:15)
[2017-04-13] MEDS ORDERED: FLEET ENEMA 133 ML BOTTLE RC ONE ×2 (12:15→20:00)
[2017-04-13] MEDS ORDERED: GOLYTELY 4000 ML BOTTLE PO ONE (12:15)
[2017-04-13 15:32] LABS: *OCCULT BLOOD STOOL POSITIVE (NEGATIVE)
[2017-04-13 16:02] VITALS: BP 131/98
--- NOTE | 2017-04-13 17:00 | NUR ---
IV heplock to right wrist noted to be leaking at the site. Restarted a new PIV on the left forearm 20gauge. Patent and intact, flushing well. No pain or sweling at the site. Old IV to right wrist removed.
--- NOTE | 2017-04-13 18:36 | NUR ---
Patient awake and alert, laying in bed high-posada's. Watching TV and drinking golytely as ordered for colonoscopy tomorrow. Tolerating well, VSS. Bed in low position with call light within reach.
--- NOTE | 2017-04-13 19:45 | NUR ---
RECEIVED PATIENT AWAKE IN BED. PATIENT IS A/O X2, BUT VERY FORGETFUL AND NEEDS FREQUENT REDIRECTION. VERY PLEASANT WHEN APPROACHED AND VERY COOPERATIVE WITH CARE. PATENT IS CURRENTLY DRINKING GOLYTELY ORDERED FOR EGD/COLONOSCOPY IN AM. TOLERATING WELL. VSS. IVF INFUSING WELL TO LEFT FA. NO RESP. DISTRESS NOTED. DENIES ANY SOB OR PAIN/DISCOMFORT. CALL LIGHT IN REACH. BED ALARM ON. ALL NEEDS ATTENDED. WILL CONTINUE TO MONITOR.
[2017-04-13 20:00] VITALS: BP 189/89
--- NOTE | 2017-04-13 20:00 | NUR ---
PATENT GIVEN FLEET ENEMA ORDERED,
--- NOTE | 2017-04-13 20:15 | NUR ---
UNABLE TO APPLY NYSTATIN CREAM TO AFFECTED AREA AT THIS TIME. PATIENT IS HAVING FREQUENT LOOSE STOOLS FOR COLONOSCOPY PREP.
[2017-04-13] MEDS: MEMANTINE HCL 10 MG TABLET PO SCH (20:22)
[2017-04-13] MEDS: DONEPEZIL 10 MG TABLET PO SCH (20:22)
[2017-04-13] MEDS: ACETAMINOPHEN 325 MG TABLET PO PRN (21:26)
[2017-04-13 22:00] VITALS: BP 149/84
--- NOTE | 2017-04-13 22:00 | NUR ---
PATIENT AWAKE IN BED. STILL DRINKING GOLYTELY AND TOLERATING WELL. MORE THAN HALF OF THE BOTTLE IS COMPLETE. PATIENT IS HAVING LOOSE MUCOUS STOOLS NOTED IN DIAPER. SEVERE REDNESS AND EXCORIATION NOTED TO BUTTOCKS AND BILATERAL GROIN. SKIN CARE FREQUENTLY PROVIDED. WILL COTINUE TO MONITOR. CALLED OUT TO DR. BOURNE FOR FURTHER ORDERS. CALL LIGHT IN REACH. ALL NEEDS ATTENDED. WILL CONTINUE TO MONITOR AND ASSESS.
--- NOTE | 2017-04-13 22:35 | NUR ---
RECEIVED CALL BACK FROM DR. BOURNE. RECEIVED NEW ORDERS. WILL CONTINUE TO MONITOR AND ASSESS.
--- NOTE | 2017-04-14 | NUR ---
PATIENT FINISHED GOLYTELY. TOLERATED WELL. WILL CONTINUE TO MONITOR.
--- NOTE | 2017-04-14 03:15 | NUR ---
PATIENTS DIAPER CHANGED. LIGHT BROWN LIQUID NOTED IN DIAPER WITH MUCOUS NOTED. TAP WATER ENEMA X2 GIVEN AND PATIENT PLACED ON BEDPAN. CLEAR LIQUID NOTED. ALL NEEDS ATTENDED, WILL CONTINUE TO MONITOR AND ASSESS.
[2017-04-14 05:00] VITALS: BP 142/86
[2017-04-14] MEDS: IV NS 1000 ML 1,000 ML IV PRN (06:10)
--- NOTE | 2017-04-14 06:10 | NUR ---
SURGERY CALLED TO SEE IF PATIENT IS READY FOR PICKUP FOR COLONOSCOPY. INFORMED SURGERY NURSE THAT IT WAS REPORTED THAT PROCEDURE IS SCHEDULED FOR 1030AM. SURGERY CLARIFIED PROCEDURE IS SCHEDULED FOR 0700AM. INFORMED SURGERY THAT PATIENT IS ALREADY FULLY READY AND PREPPED, READY FOR PICK-UP. VSS. PATIENT DENIES PAIN OR DISCOMFORT. IVF INFUSING WELL TO LEFT FA. NO RESP. DISTRESS NOTED. CALL LIGHT IN REACH. BED ALARM ON. ALL NEEDS ATTENDED. WILL CONTINUE TO MONITOR AND ASSESS.
[2017-04-14 07:30] LABS: BASOPHILS % (AUTO) 0.4 % (0.0-2.0); EOSINOPHILS # (AUTO) 0.4 K/uL (0.0-0.7); EOSINOPHILS % (AUTO) 4.3 % (0.0-7.0); HEMATOCRIT 34.3 % (36.7-47.1); HEMOGLOBIN 11.2 g/dL (12.5-16.3); LYMPHOCYTES # (AUTO) 2.8 K/uL (20.0-40.0); LYMPHOCYTES % (AUTO) 27.2 % (20.5-51.5); MEAN CORPUSCULAR HEMOGLOBIN 26.2 uug (23.8-33.4); MEAN CORPUSCULAR HGB CONC 33 g/dL (32.5-36.3); MEAN CORPUSCULAR VOLUME 80.1 fL (73.0-96.2); MONOCYTES # (AUTO) 1.1 K/uL (2.0-10.0); MONOCYTES % (AUTO) 10.6 % (0.0-11.0); NEUTROPHILS % (AUTO) 57.5 % (38.5-71.5); PLATELET COUNT (AUTO) 380 K/uL (152-348); RED BLOOD CELL COUNT(AUTO) 4.28 MIL/uL (4.06-5.63); WHITE BLOOD COUNT (AUTO) 10.4 K/uL (3.6-10.2)
[2017-04-14 07:51] LABS: ALANINE AMINOTRANSFERASE 14 U/L (16-63); ALKALINE PHOSPHATASE 132 U/L (50-136); ASPARTATE AMINOTRANSFERASE 22 U/L (15-37); BILIRUBIN,TOTAL 0.2 mg/dL (0.2-1.0); CARBON DIOXIDE 27 mmol/L (21-32); CHLORIDE 105 mmol/L (98-107); CREATININE 0.9 mg/dL (0.6-1.3); GLUCOSE 79 mg/dL (74-106); PHOSPHOROUS 2.8 mg/dL (2.5-4.9); POTASSIUM 3.2 mmol/L (3.5-5.1); TOTAL PROTEIN, SERUM 5.9 g/dL (6.4-8.2); UREA NITROGEN, BLOOD 5 mg/dL (7-18)
[2017-04-14] MEDS ORDERED: METRONIDAZOLE 500 MG/NS 100ML 500 MG in PREMIXED 1 EACH IV SCH (08:00)
[2017-04-14] MEDS ORDERED: CIPROFLOXACIN IV 200 MG in PREMIXED 1 EACH IV SCH (09:00)
[2017-04-14] MEDS: SERTRALINE HCL 50 MG TABLET PO SCH (09:11)
[2017-04-14] MEDS: PANTOPRAZOLE SODIUM 40 MG VIAL IV SCH ×2 (09:11→20:53)
[2017-04-14] MEDS: DOCUSATE SODIUM 100 MG CAPSULE PO SCH (09:11)
[2017-04-14] MEDS: NYSTATIN CREAM 30 GM TUBE TOP SCH ×2 (10:17→20:51)
[2017-04-14] MEDS: METRONIDAZOLE 500 MG/NS 100ML 500 MG in PREMIXED 1 EACH IV SCH ×2 (10:18→17:35)
[2017-04-14] MEDS ORDERED: POTASSIUM CHLORIDE 50 ML IV SCH (10:30)
[2017-04-14] MEDS: POTASSIUM CHLORIDE 10 MEQ in IV DEXTROSE 5% 50 ML IV SCH ×2 (11:05→12:25)
[2017-04-14 11:54] VITALS: BP 148/100
[2017-04-14] MEDS ORDERED: CEFTRIAXONE 1 G in IV DEXTROSE 5% 50 ML IV SCH (13:30)
[2017-04-14] MEDS: VANCOMYCIN FOR PO/GT/NG USE PO SCH ×3 (14:10→23:52)
[2017-04-14 16:55] VITALS: BP 142/79
[2017-04-14] MEDS ORDERED: LIDOCAINE HCL 2% 20 ML VIAL MC ONE (17:57)
[2017-04-14] MEDS ORDERED: SIMETHICONE 40 MG/0.6 ML 30 ML BOTTLE MC ONE (17:57)
[2017-04-14] MEDS ORDERED: IRR STERIL WATER FOR IRR 1000 ML BOTTLE IR ONE (17:57)
[2017-04-14] MEDS ORDERED: IV NORMAL SALINE 1000 ML BAG IV ONE (17:57)
[2017-04-14] MEDS ORDERED: PROPOFOL 200 MG/20 ML BOTTLE IV ONE (17:57)
--- NOTE | 2017-04-14 18:26 | NUR ---
Patient in bed resting. No s/s of distress during my shift. Pt been having loose stools during the day, an small specimen was collected and sent to lab. Procedures were done and medications were given as ordered, patient have been cooperative with all interventions. Z-guard and Nystatin applied on the buttock and groin area for skin protection. Iv fluids are running, new iv site was inserted, documented. A friend visited and brought a sweater for patient, documented on the belongings sheet. Safety and comfort provided during the day. Will continue monitoring.
--- NOTE | 2017-04-14 20:00 | NUR ---
RECEIVED PATIENT AWAKE IN BED WATCHING TV AND EATING. PATIENT IS A/O X2, VERY FORGETFUL BUT PLEASANT AND COOPERATIVE WITH CARE AND STAFF. DENIES ANY PAIN OR DISCOMFORT NO RESP. DISTRESS NOTED. IVF INFUSING WELL TO LEFT FA #22 GAUGE. BED ALARM ON. CALL LIGHT IN REACH. ALL NEEDS ATTENDED. WILL CONTINUE TO MONITOR.
[2017-04-14] MEDS: DONEPEZIL 10 MG TABLET PO SCH (20:50)
[2017-04-14] MEDS: MEMANTINE HCL 10 MG TABLET PO SCH (20:50)
[2017-04-14 21:23] VITALS: BP 154/83
[2017-04-15] MEDS: IV NS 1000 ML 1,000 ML IV PRN (00:11)
[2017-04-15] MEDS: ACETAMINOPHEN 325 MG TABLET PO PRN (00:42)
[2017-04-15] MEDS: METRONIDAZOLE 500 MG/NS 100ML 500 MG in PREMIXED 1 EACH IV SCH ×3 (01:27→17:24)
[2017-04-15 05:02] VITALS: BP 133/87
[2017-04-15] MEDS: VANCOMYCIN FOR PO/GT/NG USE PO SCH ×3 (05:17→17:26)
--- NOTE | 2017-04-15 05:59 | NUR ---
PATIENT ASLEEP IN BED. NO S/S OF PAIN OR DISCOMFORT. NO RESP. DISTRESS NOTED. IVF INFUSING WELL. VSS. BED ALARM ON. CALL LIGHT IN REACH. ALL NEEDS ATTENDED.
[2017-04-15 07:00] LABS: BASOPHILS # (AUTO) 0.1 K/uL (0.0-8.0); BASOPHILS % (AUTO) 0.5 % (0.0-2.0); EOSINOPHILS # (AUTO) 0.5 K/uL (0.0-0.7); MONOCYTES # (AUTO) 1.3 K/uL (2.0-10.0)
[2017-04-15 07:11] LABS: LYMPHOCYTES # (AUTO) 3.3 K/uL (20.0-40.0); LYMPHOCYTES % (AUTO) 27.6 % (20.5-51.5); MEAN CORPUSCULAR HEMOGLOBIN 26.2 uug (23.8-33.4); MEAN CORPUSCULAR HGB CONC 32 g/dL (32.5-36.3); MEAN CORPUSCULAR VOLUME 80.8 fL (73.0-96.2); MONOCYTES % (AUTO) 10.7 % (0.0-11.0); NEUTROPHILS # (AUTO) 6.8 K/uL (1.8-8.9); NEUTROPHILS % (AUTO) 57.2 % (38.5-71.5); PLATELET COUNT (AUTO) 337 K/uL (152-348); RED BLOOD CELL COUNT(AUTO) 3.64 MIL/uL (4.06-5.63); WHITE BLOOD COUNT (AUTO) 11.9 K/uL (3.6-10.2)
[2017-04-15 07:12] LABS: HEMATOCRIT 29.4 % (36.7-47.1); HEMOGLOBIN 9.5 g/dL (12.5-16.3)
[2017-04-15 07:24] LABS: ALANINE AMINOTRANSFERASE 13 U/L (16-63); ALKALINE PHOSPHATASE 149 U/L (50-136); ASPARTATE AMINOTRANSFERASE 20 U/L (15-37); BILIRUBIN,TOTAL 0.2 mg/dL (0.2-1.0); CARBON DIOXIDE 26 mmol/L (21-32); CHLORIDE 106 mmol/L (98-107); CREATININE 1.1 mg/dL (0.6-1.3); GLUCOSE 93 mg/dL (74-106); MAGNESIUM 1.8 mg/dL (1.8-2.4); PHOSPHOROUS 2.6 mg/dL (2.5-4.9); POTASSIUM 3.6 mmol/L (3.5-5.1); TOTAL PROTEIN, SERUM 5.3 g/dL (6.4-8.2); UREA NITROGEN, BLOOD 12 mg/dL (7-18)
--- NOTE | 2017-04-15 08:00 | NUR ---
PATIENT IS AWAKE, AOX2 WITH FORGETFULNESS AND IN A PLEASANT MOOD. NO SIGNS OR SYMPTOMS OF DISTRESS OR DISCOMFORT NOTED AT PRESENT, WILL CONTINUE TO MONITOR PATIENT
[2017-04-15] MEDS: DOCUSATE SODIUM 100 MG CAPSULE PO SCH (08:14)
[2017-04-15] MEDS: PANTOPRAZOLE SODIUM 40 MG VIAL IV SCH (08:14)
[2017-04-15] MEDS: SERTRALINE HCL 50 MG TABLET PO SCH (08:15)
[2017-04-15] MEDS: NYSTATIN CREAM 30 GM TUBE TOP SCH (08:17)
[2017-04-15 10:51] VITALS: BP 124/77
--- NOTE | 2017-04-15 12:00 | NUR ---
PATIENT NOTED ASLEEP WITH NO OBVIOUS SIGNS OF PAIN OR DISCOMFORT, CALL LIGHT WITHIN REACH, BED IN LOW POSITION. WILL CONTINUE TO MONITOR PATIENT
[2017-04-15] MEDS ORDERED: DONE10TA11 PO (12:55)
[2017-04-15] MEDS ORDERED: VANC500V PO (12:55)
[2017-04-15] MEDS ORDERED: METR500P4 IV (12:55)
[2017-04-15] MEDS ORDERED: MEMA10TA PO (12:55)
[2017-04-15] MEDS ORDERED: ACET325T53 PO (12:55)
[2017-04-15] MEDS ORDERED: PANT40TA2 PO (12:55)
[2017-04-15] MEDS ORDERED: SERT50TA12 PO (12:55)
[2017-04-15] MEDS ORDERED: CEPH500C2 PO (12:55)
[2017-04-15] MEDS ORDERED: NYST15CR TOP (12:55)
[2017-04-15] MEDS ORDERED: LACT1CAP59 PO (12:55)
[2017-04-15] MEDS ORDERED: CEPHALEXIN MONOHYDRATE 500 MG CAPSULE PO SCH (14:00)
[2017-04-15 15:10] VITALS: BP 122/76
[2017-04-15] MEDS ORDERED: PANTOPRAZOLE SODIUM 40 MG TABLET.DR PO SCH (17:00)
--- NOTE | 2017-04-15 17:59 | NUR ---
RECEIVED ORDERS FROM LIZ NGUYEN TO DISCHARGE PATIENT TO [facility]. DISCHARGE ORDERS EXPLAINED TO PATIENT WITH MEDICATION LIST.REPORT ENDORSED TO MARIO GRECO AT THE FACILITY. ID BAND AND IV REMOVED, AMBULANCE STAFF PICKED PATIENT UP IN SAFE AND STABLE CONDITION. COMFORT AND SAFETY MEASURES PROVIDED BY STAFF DURING PATIENT'S HOSPITAL STAY
[2017-04-20 11:07] LABS: *IBD ATYPICAL pANCA <1:20 titer (Neg:<1:20)
[2017-04-20 12:08] LABS: *IBD SACCHAROMYCES CEREV IGA 30.7 Units (0.0-24.9); *IBD SACCHAROMYCES CEREV IGG 70.2 Units (0.0-24.9)
== END 2017-04-15 17:58 | DRG 393 ==
LOC: ER 13:14 → TELE 15:14 → MED 04-11 11:10
PROVIDERS: ADMIT Internal Medicine; ATTEND Internal Medicine
PROC: 0DBE8ZX Excision of Large Intestine, Via Natural or Artificial Opening Endoscopic, Diagnostic (ICD-10-PCS; 2017-04-14)
PROC: 0DBL8ZX Excision of Transverse Colon, Via Natural or Artificial Opening Endoscopic, Diagnostic (ICD-10-PCS; principal; 2017-04-14 07:29)
DX: K55.9 Vascular disorder of intestine, unspecified (principal); G93.41 Metabolic encephalopathy; E43 Unspecified severe protein-calorie malnutrition; A04.72 Enterocolitis due to Clostridium difficile, not specified as recurrent; K62.5 Hemorrhage of anus and rectum; N39.0 Urinary tract infection, site not specified; Z68.1 Body mass index [BMI] 19.9 or less, adult; E88.09 Other disorders of plasma-protein metabolism, not elsewhere classified; D50.9 Iron deficiency anemia, unspecified; E83.42 Hypomagnesemia; E83.51 Hypocalcemia; E87.6 Hypokalemia; F03.90 Unspecified dementia, unspecified severity, without behavioral disturbance, psychotic disturbance, mood disturbance, and anxiety; F32.9 Major depressive disorder, single episode, unspecified; F41.9 Anxiety disorder, unspecified; I10 Essential (primary) hypertension; K21.9 Gastro-esophageal reflux disease without esophagitis; Z87.440 Personal history of urinary (tract) infections; D50.0 Iron deficiency anemia secondary to blood loss (chronic); K59.09 Other constipation; D47.3 Essential (hemorrhagic) thrombocythemia; R73.9 Hyperglycemia, unspecified; N28.1 Cyst of kidney, acquired; K76.89 Other specified diseases of liver; K64.9 Unspecified hemorrhoids; K63.5 Polyp of colon; Z79.899 Other long term (current) drug therapy
CPT/HCPCS: 36415; 70030-TC; 71010; 76700; 80346; 80349; 80361; 82105; 82378; 83550; 83605; 83690; 83735; 84100; 84443; 85025; 85610; 85730; 86625; 86850; 86900; 86901; 87040; 87046; 87177; 93005; 97116; 97530; A4217; A4663; C9113; J0696; J3370; J3475; J3480; J3490; J7030; J7060

== ENCOUNTER 2017-05-09 15:38 | Inpatient (IN) | payer MEDICARE ==
[~2017-05-09] VITALS: Ht 167.6 cm; Wt 54.4 kg
[~2017-05-09 15:38] MED LIST changes: -ACET-2154 PO; -AMIN30LI2 PO; -CARV6.252 PO; +CEPH500C2 PO; -CRAN405C PO; -FAMO-132 PO; -FERR325T28 PO; +LACT1CAP59 PO; -MAGN400O6 PO; +METR500P4 IV; +NYST15CR TOP; +PANT40TA2 PO; -SERT25TA PO; +SERT50TA12 PO; +VANC500V PO
[2017-05-09] MEDS ORDERED: MAGN400O6 PO (16:17)
[2017-05-09] MEDS ORDERED: SACC250C PO (16:17)
[2017-05-09] MEDS ORDERED: ACET-2154 PO (16:17)
[2017-05-09] MEDS ORDERED: CRAN405C PO (16:17)
[2017-05-09] MEDS ORDERED: SERT50TA PO (16:17)
[2017-05-09 16:38] LABS: CARBON DIOXIDE 30 mmol/L (21-32); CHLORIDE 96 mmol/L (98-107); CREATININE 1.2 mg/dL (0.6-1.3); GLUCOSE 99 mg/dL (74-106); POTASSIUM 3.9 mmol/L (3.5-5.1); UREA NITROGEN, BLOOD 17 mg/dL (7-18)
[2017-05-09 16:44] LABS: ALANINE AMINOTRANSFERASE 17 U/L (16-63); ALKALINE PHOSPHATASE 147 U/L (50-136); ASPARTATE AMINOTRANSFERASE 21 U/L (15-37); BILIRUBIN,DIRECT 0.1 mg/dL (0.0-0.2); BILIRUBIN,TOTAL 0.3 mg/dL (0.2-1.0); TOTAL PROTEIN, SERUM 7.3 g/dL (6.4-8.2)
[2017-05-09 16:46] LABS: BASOPHILS % (AUTO) 0.4 % (0.0-2.0); EOSINOPHILS # (AUTO) 0.2 K/uL (0.0-0.7); EOSINOPHILS % (AUTO) 1.7 % (0.0-7.0); HEMATOCRIT 37.3 % (36.7-47.1); HEMOGLOBIN 12.5 g/dL (12.5-16.3); LYMPHOCYTES % (AUTO) 29.6 % (20.5-51.5); MEAN CORPUSCULAR HEMOGLOBIN 27.4 uug (23.8-33.4); MEAN CORPUSCULAR HGB CONC 33 g/dL (32.5-36.3); MEAN CORPUSCULAR VOLUME 82.1 fL (73.0-96.2); MONOCYTES # (AUTO) 1.2 K/uL (2.0-10.0); MONOCYTES % (AUTO) 12.1 % (0.0-11.0); NEUTROPHILS # (AUTO) 5.7 K/uL (1.8-8.9); NEUTROPHILS % (AUTO) 56.2 % (38.5-71.5); PLATELET COUNT (AUTO) 488 K/uL (152-348); RED BLOOD CELL COUNT(AUTO) 4.55 MIL/uL (4.06-5.63); WHITE BLOOD COUNT (AUTO) 10.2 K/uL (3.6-10.2)
[2017-05-09 18:20] VITALS: BP 138/81
[2017-05-09 19:00] VITALS: BP 139/83
[2017-05-09] MEDS ORDERED: MORPHINE SULFATE 4 MG/1 ML DISP.SYRIN IV PRN (19:45)
[2017-05-09] MEDS ORDERED: LORAZEPAM 2 MG/1 ML VIAL IV PRN (19:45)
[2017-05-09] MEDS ORDERED: MORPHINE SULFATE 2 MG/1 ML DISP.SYRIN IV PRN (19:45)
[2017-05-09] MEDS ORDERED: ONDANSETRON 4 MG/2 ML VIAL IV PRN (19:45)
[2017-05-09] MEDS ORDERED: ACETAMINOPHEN 325 MG TABLET PO PRN (19:45)
[2017-05-09] MEDS: IV D5 1/2 NS 1000 ML 1,000 ML IV PRN (20:11)
[2017-05-10 04:00] VITALS: BP 105/82
[2017-05-10 06:56] LABS: IRON, SERUM 26 ug/dL (50-175)
[2017-05-10 07:00] LABS: BASOPHILS % (AUTO) 0.3 % (0.0-2.0); EOSINOPHILS # (AUTO) 0.3 K/uL (0.0-0.7); EOSINOPHILS % (AUTO) 2.9 % (0.0-7.0); HEMATOCRIT 34.2 % (36.7-47.1); HEMOGLOBIN 11.2 g/dL (12.5-16.3); LYMPHOCYTES # (AUTO) 2.7 K/uL (20.0-40.0); LYMPHOCYTES % (AUTO) 23.1 % (20.5-51.5); MEAN CORPUSCULAR HEMOGLOBIN 27.1 uug (23.8-33.4); MEAN CORPUSCULAR HGB CONC 33 g/dL (32.5-36.3); MEAN CORPUSCULAR VOLUME 82.6 fL (73.0-96.2); MONOCYTES # (AUTO) 1.5 K/uL (2.0-10.0); MONOCYTES % (AUTO) 12.7 % (0.0-11.0); NEUTROPHILS # (AUTO) 7.3 K/uL (1.8-8.9); PLATELET COUNT (AUTO) 435 K/uL (152-348); RED BLOOD CELL COUNT(AUTO) 4.14 MIL/uL (4.06-5.63); WHITE BLOOD COUNT (AUTO) 11.9 K/uL (3.6-10.2)
[2017-05-10 07:07] LABS: ALANINE AMINOTRANSFERASE 17 U/L (16-63); ALKALINE PHOSPHATASE 134 U/L (50-136); ASPARTATE AMINOTRANSFERASE 22 U/L (15-37); BILIRUBIN,TOTAL 0.3 mg/dL (0.2-1.0); CARBON DIOXIDE 28 mmol/L (21-32); CHLORIDE 99 mmol/L (98-107); GLUCOSE 93 mg/dL (74-106); MAGNESIUM 1.9 mg/dL (1.8-2.4); PHOSPHOROUS 3.4 mg/dL (2.5-4.9); POTASSIUM 3.5 mmol/L (3.5-5.1); TOTAL PROTEIN, SERUM 6.4 g/dL (6.4-8.2); UREA NITROGEN, BLOOD 11 mg/dL (7-18)
[2017-05-10] MEDS: PANTOPRAZOLE SODIUM 40 MG VIAL IV SCH (08:20)
[2017-05-10] MEDS: Z GUARD REMEDY PASTE 57 GM TUBE TOP SCH ×2 (08:30→21:06)
[2017-05-10 11:26] VITALS: BP 130/91
[2017-05-10] MEDS ORDERED: CLOTRIMAZOLE/BETAMET DIPROP CREAM 15 GM TUBE TOP SCH (14:30)
[2017-05-10 15:52] VITALS: BP 126/80
[2017-05-10 20:42] VITALS: BP 126/85
[2017-05-10] MEDS: NYSTATIN/TRIAMCINOLONE CREAM 15 GM TUBE TP SCH (21:07)
[2017-05-11] MEDS: IV D5 1/2 NS 1000 ML 1,000 ML IV PRN ×2 (01:07→12:58)
[2017-05-11 04:00] VITALS: BP 136/91
[2017-05-11 08:30] LABS: BASOPHILS # (AUTO) 0.1 K/uL (0.0-8.0); BASOPHILS % (AUTO) 0.4 % (0.0-2.0); EOSINOPHILS # (AUTO) 0.2 K/uL (0.0-0.7); EOSINOPHILS % (AUTO) 1.7 % (0.0-7.0); HEMATOCRIT 36.4 % (36.7-47.1); HEMOGLOBIN 12.1 g/dL (12.5-16.3); LYMPHOCYTES # (AUTO) 2.2 K/uL (20.0-40.0); MEAN CORPUSCULAR HEMOGLOBIN 27.3 uug (23.8-33.4); MEAN CORPUSCULAR HGB CONC 33 g/dL (32.5-36.3); MEAN CORPUSCULAR VOLUME 82.2 fL (73.0-96.2); MONOCYTES # (AUTO) 1.4 K/uL (2.0-10.0); MONOCYTES % (AUTO) 10.8 % (0.0-11.0); NEUTROPHILS % (AUTO) 70.1 % (38.5-71.5); PLATELET COUNT (AUTO) 486 K/uL (152-348); RED BLOOD CELL COUNT(AUTO) 4.42 MIL/uL (4.06-5.63); WHITE BLOOD COUNT (AUTO) 12.8 K/uL (3.6-10.2)
[2017-05-11 08:58] LABS: ALANINE AMINOTRANSFERASE 18 U/L (16-63); ALKALINE PHOSPHATASE 144 U/L (50-136); ASPARTATE AMINOTRANSFERASE 27 U/L (15-37); BILIRUBIN,TOTAL 0.3 mg/dL (0.2-1.0); CARBON DIOXIDE 30 mmol/L (21-32); CHLORIDE 99 mmol/L (98-107); GLUCOSE 101 mg/dL (74-106); MAGNESIUM 1.9 mg/dL (1.8-2.4); PHOSPHOROUS 3.4 mg/dL (2.5-4.9); POTASSIUM 3.3 mmol/L (3.5-5.1); TOTAL PROTEIN, SERUM 6.7 g/dL (6.4-8.2); UREA NITROGEN, BLOOD 7 mg/dL (7-18)
[2017-05-11] MEDS: PANTOPRAZOLE SODIUM 40 MG VIAL IV SCH (09:18)
[2017-05-11] MEDS: NYSTATIN/TRIAMCINOLONE CREAM 15 GM TUBE TP SCH (09:19)
[2017-05-11] MEDS: Z GUARD REMEDY PASTE 57 GM TUBE TOP SCH ×2 (09:20→21:32)
[2017-05-11] MEDS: CLOTRIMAZOLE/BETAMET DIPROP CREAM 15 GM TUBE TOP SCH ×2 (10:29→21:32)
[2017-05-11 11:34] VITALS: BP 121/89
[2017-05-11 16:18] VITALS: BP 120/76
[2017-05-11 20:00] VITALS: BP 109/82
[2017-05-12] MEDS: IV D5 1/2 NS 1000 ML 1,000 ML IV PRN ×2 (02:30→16:55)
[2017-05-12 04:00] VITALS: BP 144/85
[2017-05-12] MEDS: Z GUARD REMEDY PASTE 57 GM TUBE TOP SCH (09:24)
[2017-05-12] MEDS: PANTOPRAZOLE SODIUM 40 MG VIAL IV SCH (09:25)
[2017-05-12] MEDS: CLOTRIMAZOLE/BETAMET DIPROP CREAM 15 GM TUBE TOP SCH (09:25)
[2017-05-12 11:00] VITALS: BP 108/75
[2017-05-12] MEDS ORDERED: MULT1TAB73 PO (11:44)
[2017-05-12] MEDS ORDERED: CLOT15CR36 TOP (11:44)
[2017-05-12] MEDS ORDERED: MAGN400O6 PO (11:44)
[2017-05-12] MEDS ORDERED: FUROSEMIDE 20 MG/2 ML VIAL IV ONE (12:00)
[2017-05-12] MEDS ORDERED: SOD FERRIC GLUC COMPLX/SUCROSE 125 MG in IV NORMAL SALINE 100 ML IV SCH (14:00)
[2017-05-12 15:05] VITALS: BP 126/86
== END 2017-05-12 20:00 | DRG 391 ==
LOC: ER 15:39 → MED 17:17
PROVIDERS: ADMIT Internal Medicine; ATTEND Internal Medicine
DX: K58.1 Irritable bowel syndrome with constipation (principal); G92 Toxic encephalopathy; N17.0 Acute kidney failure with tubular necrosis; E43 Unspecified severe protein-calorie malnutrition; G30.9 Alzheimer's disease, unspecified; I11.0 Hypertensive heart disease with heart failure; I50.32 Chronic diastolic (congestive) heart failure; D50.0 Iron deficiency anemia secondary to blood loss (chronic); E86.0 Dehydration; F02.80 Dementia in other diseases classified elsewhere, unspecified severity, without behavioral disturbance, psychotic disturbance, mood disturbance, and anxiety; Z68.1 Body mass index [BMI] 19.9 or less, adult; K21.9 Gastro-esophageal reflux disease without esophagitis; Z87.440 Personal history of urinary (tract) infections; M81.0 Age-related osteoporosis without current pathological fracture; M19.90 Unspecified osteoarthritis, unspecified site; E87.6 Hypokalemia; F32.9 Major depressive disorder, single episode, unspecified; N28.1 Cyst of kidney, acquired; K76.89 Other specified diseases of liver
CPT/HCPCS: 36415; 70030-TC; 71045; 83550; 83735; 84100; 85025; 85730; 86850; 86900; 86901; 93005; 97116; 97530; A4663; C9113; J1940; J2916; J3490

== ENCOUNTER 2017-05-12 15:53 | Inpatient (IN) | payer MEDICARE ==
[~2017-05-12] VITALS: Ht 167.6 cm; Wt 54.4 kg
[~2017-05-12 15:53] MED LIST changes: +ACET-2154 PO; -CEPH500C2 PO; +CLOT15CR36 TOP; +CRAN405C PO; -LACT1CAP59 PO; +MAGN400O6 PO; -METR500P4 IV; +MULT1TAB73 PO; -NYST15CR TOP; +SACC250C PO; +SERT50TA PO; -SERT50TA12 PO; -VANC500V PO
--- NOTE | 2017-05-12 20:00 | NUR ---
Patient admitted is a 81y/o M with diagnosis of Debility/Encephalopathy with Hx of Dementia, Encephalopathy, HTN, GERD, GI Bleed, Depression, Insomnia, Anxiety, Hemorrhoids and Constipation. Patient is alert and verbally responsive. Able to make needs known. Transferred to Rehab in stable condition. No c/o pain and discomfort. No acute distress. No SOB. IV site on L wrist. Patent and intact. Kept clean and dry. All needs attended to promptly. Call light within reach. Will continue to monitor. Dr. Matos seen and examined patient.
[2017-05-12] MEDS ORDERED: Medication Not On Formulary EA (Saccharomyces Boulardii (Florastor) 250 MG) PO SCH (20:45)
[2017-05-12] MEDS ORDERED: MAGNESIUM HYDROXIDE 30 ML LIQUID UDC PO PRN (20:45)
[2017-05-12] MEDS ORDERED: ACETAMINOPHEN 325 MG TABLET PO PRN (20:45)
[2017-05-12] MEDS: DONEPEZIL 10 MG TABLET PO SCH (21:41)
[2017-05-12] MEDS: MEMANTINE HCL 10 MG TABLET PO SCH (21:41)
[2017-05-12] MEDS: CLOTRIMAZOLE/BETAMET DIPROP CREAM 15 GM TUBE TOP SCH (21:42)
[2017-05-12] MEDS ORDERED: Z GUARD REMEDY PASTE 57 GM TUBE TOP PRN (22:45)
[2017-05-12 22:57] VITALS: BP 125/80
--- NOTE | 2017-05-13 06:07 | NUR ---
Patient slept comfortably throughout the night. No c/o pain and discomfort. No acute distress. No SOB. IV site on L wrist patent and intact. On Isolation for possible C-diff. Results pending. Had large BM this AM. Pericare provided. Kept clean and dry. All needs attended to promptly. Call light within reach. Will continue to monitor.
[2017-05-13] MEDS: PANTOPRAZOLE SODIUM 40 MG TABLET.DR PO SCH ×2 (06:38→17:05)
[2017-05-13 08:00] VITALS: BP 93/55
[2017-05-13] MEDS: CLOTRIMAZOLE/BETAMET DIPROP CREAM 15 GM TUBE TOP SCH ×2 (08:46→21:00)
[2017-05-13] MEDS: SERTRALINE HCL 50 MG TABLET PO SCH (08:46)
[2017-05-13] MEDS: MULTIVITAMINS,THERAPEUTIC TABLET PO SCH (08:46)
[2017-05-13] MEDS ORDERED: Medication Not On Formulary EA (Multivitamins (Multivitamin) 1 EACH) PO SCH (09:00)
--- NOTE | 2017-05-13 10:00 | NUR ---
Patient had syncopal episode. Patient was up with physical therapy and therapist claimed patient lost consciousness while using the toilet. Patient regained consciousness less than a minute. Patient had 1 episode of vomiting after regaining consciousness, VS was as follows: Spo2 89% BP- 135/105 WI-77 Blood sugar 118.
--- NOTE | 2017-05-13 10:35 | NUR ---
Patient awake, alert x3. In bed resting with O2 sat at 98% with O2 at 2Lpm. Informed Dr. Matos, patient for GI consult. To start NS at 75cc/hr
[2017-05-13] MEDS: IV NS 1000 ML 1,000 ML IV PRN (12:15)
--- NOTE | 2017-05-13 13:19 | NUR ---
INTERDISCIPLINARY TEAM CONFERENCE
--- NOTE | 2017-05-13 16:01 | NUR ---
Patient had 1 episode of loose stools, no blood noted. Still on IV fluids. Offered fluids as tolerated. Denies any pain VSS
[2017-05-13 16:02] VITALS: BP 109/72
[2017-05-13 20:23] VITALS: BP 125/91
[2017-05-13] MEDS: MEMANTINE HCL 10 MG TABLET PO SCH (20:59)
[2017-05-13] MEDS: DONEPEZIL 10 MG TABLET PO SCH (20:59)
[2017-05-14] MEDS: IV NS 1000 ML 1,000 ML IV PRN ×2 (00:31→20:30)
--- NOTE | 2017-05-14 05:04 | NUR ---
Patient slept intermittently at night. Meds given and patient compliant. On IV fluids 75 mL/ hr. On 2L O2 via NC, tolerating well. No BM at this time. Stool has to be collected. All needs attended to promptly t/o the night. Safety measures maintained. Call light and personal belongings within reach. Will endorse to day shift RN. Continue to monitor.
--- NOTE | 2017-05-14 05:57 | NUR ---
Loose bowel movement and blood noted in stool. Sent to lab for C. diff testing. Will continue to monitor patient.
[2017-05-14] MEDS: PANTOPRAZOLE SODIUM 40 MG TABLET.DR PO SCH ×2 (06:14→17:13)
[2017-05-14] MEDS: SERTRALINE HCL 50 MG TABLET PO SCH (08:13)
[2017-05-14] MEDS: MULTIVITAMINS,THERAPEUTIC TABLET PO SCH (08:13)
[2017-05-14 08:47] VITALS: BP 126/77
[2017-05-14] MEDS: CLOTRIMAZOLE/BETAMET DIPROP CREAM 15 GM TUBE TOP SCH ×2 (09:00→20:40)
--- NOTE | 2017-05-14 09:34 | NUR ---
pt sen on rounding. pt continues to be on oxygen at 3l. pt tolerates. will reassess pt if oxygen is needed. pt has irregular hr through assessment on checking pulses . pt had an episode of syncope prior to shift. no signs and symptoms noted. no signs of orthostatic hypotension noted. pt able to swallow pills whole with applesauce. no aspiration noted. pt worked with therapy. other vitals signs stable. will continue to monitor.
--- NOTE | 2017-05-14 15:51 | NUR ---
pt had an episode of fall. xray of skull and coccyx ordered stat. awaiting results.
[2017-05-14 16:33] LABS: BASOPHILS % (AUTO) 0.2 % (0.0-2.0); EOSINOPHILS # (AUTO) 0.1 K/uL (0.0-0.7); EOSINOPHILS % (AUTO) 0.9 % (0.0-7.0); HEMATOCRIT 34.1 % (36.7-47.1); HEMOGLOBIN 11.1 g/dL (12.5-16.3); LYMPHOCYTES # (AUTO) 2.7 K/uL (20.0-40.0); LYMPHOCYTES % (AUTO) 18.7 % (20.5-51.5); MEAN CORPUSCULAR HEMOGLOBIN 27.2 uug (23.8-33.4); MEAN CORPUSCULAR HGB CONC 33 g/dL (32.5-36.3); MEAN CORPUSCULAR VOLUME 83.2 fL (73.0-96.2); MONOCYTES # (AUTO) 1.4 K/uL (2.0-10.0); MONOCYTES % (AUTO) 9.9 % (0.0-11.0); NEUTROPHILS % (AUTO) 70.3 % (38.5-71.5); PLATELET COUNT (AUTO) 414 K/uL (152-348); RED BLOOD CELL COUNT(AUTO) 4.09 MIL/uL (4.06-5.63); WHITE BLOOD COUNT (AUTO) 14.2 K/uL (3.6-10.2)
[2017-05-14 16:39] LABS: CARBON DIOXIDE 27 mmol/L (21-32); CHLORIDE 100 mmol/L (98-107); GLUCOSE 92 mg/dL (74-106); MAGNESIUM 1.7 mg/dL (1.8-2.4); PHOSPHOROUS 2.7 mg/dL (2.5-4.9); POTASSIUM 4.2 mmol/L (3.5-5.1); UREA NITROGEN, BLOOD 15 mg/dL (7-18)
--- NOTE | 2017-05-14 18:58 | NUR ---
pt had a fall during the day. incident report done. neuro check done. pt remained to have baseline. no complaints of pain when reassessed. pt alert and oriented x 3. 02 taken off and tolerates room air. no new injuries noted on skin. awaiting results for x rays. pt took meds with apple sauce. fall precautions implemented . call light within reach. iv site intact. will endorse to overnight houseperson nurse.
--- NOTE | 2017-05-14 19:30 | NUR ---
Received patient laying in bed. Alert and verbally responsive. Able to make needs known. Denies any pain and discomfort. No acute distress. No SOB. IV site on LFA. Patent and intact. Infusing NS @ 75cc/hr. Tolerating well. No s/s of fluid overload. On contact precautions for possible C-diff. All contact precautions taken. C-diff results pending. Patient kept clean and dry. All needs attended to promptly. Call light within reach. Will continue to monitor.
[2017-05-14 20:21] VITALS: BP 122/81
[2017-05-14] MEDS: DONEPEZIL 10 MG TABLET PO SCH (20:30)
[2017-05-14] MEDS: MEMANTINE HCL 10 MG TABLET PO SCH (20:31)
[2017-05-15] MEDS: PANTOPRAZOLE SODIUM 40 MG TABLET.DR PO SCH ×2 (06:24→17:00)
--- NOTE | 2017-05-15 06:33 | NUR ---
Patient slept comfortably throughout the night. No c/o pain and discomfort. No acute distress. No SOB. BM x2 this AM. Pericare provided. Kept clean and dry. All needs attended to promptly. Call light within reach. Will continue to monitor. Addendum: 05/15/17 at 0635 by MICA JUNIOR RN Neuro check done throughout the night Q4h.
[2017-05-15 08:00] VITALS: BP 134/70
[2017-05-15] MEDS: CLOTRIMAZOLE/BETAMET DIPROP CREAM 15 GM TUBE TOP SCH ×2 (08:22→20:34)
[2017-05-15] MEDS: MULTIVITAMINS,THERAPEUTIC TABLET PO SCH (08:22)
[2017-05-15] MEDS: SERTRALINE HCL 50 MG TABLET PO SCH (08:22)
--- NOTE | 2017-05-15 08:38 | NUR ---
pt seen on rounding. fresh foods cake decorator reported that pt had o2 below normal limits. reassessed pt. pt o2 dropping on room air. raised head of bed. applied 02 at 2 liters. pt tolerates. pt continues to have c diff. contact isolation implemented. fluids runiing at 75cc/hr. site intact. neuro check done and remained baseline. will continue to monitor.
[2017-05-15] MEDS: IV NS 1000 ML 1,000 ML IV PRN ×2 (10:15→23:20)
--- NOTE | 2017-05-15 13:32 | NUR ---
cdiff amplification negative. will discontinue isolation precaution.
--- NOTE | 2017-05-15 18:15 | NUR ---
pt stable throughout the day. cdiff precautions removed because pt tested negative. no new injuries. still on 2l nc because pt shows desaturation on oxygen. no diarrhea noted. fluids running at 75cc/hr and intact. no antibiotics ordered. will endorse to cut and cover line worker nurse.
[2017-05-15 19:52] VITALS: BP 136/82
[2017-05-15 20:01] LABS: BASOPHILS % (AUTO) 0.2 % (0.0-2.0); EOSINOPHILS # (AUTO) 0.1 K/uL (0.0-0.7); EOSINOPHILS % (AUTO) 1.2 % (0.0-7.0); HEMATOCRIT 32.1 % (36.7-47.1); HEMOGLOBIN 10.6 g/dL (12.5-16.3); LYMPHOCYTES # (AUTO) 2.3 K/uL (20.0-40.0); LYMPHOCYTES % (AUTO) 18.7 % (20.5-51.5); MEAN CORPUSCULAR HEMOGLOBIN 27.4 uug (23.8-33.4); MEAN CORPUSCULAR HGB CONC 33 g/dL (32.5-36.3); MEAN CORPUSCULAR VOLUME 83.2 fL (73.0-96.2); MONOCYTES % (AUTO) 8.4 % (0.0-11.0); NEUTROPHILS # (AUTO) 8.7 K/uL (1.8-8.9); NEUTROPHILS % (AUTO) 71.5 % (38.5-71.5); PLATELET COUNT (AUTO) 398 K/uL (152-348); RED BLOOD CELL COUNT(AUTO) 3.86 MIL/uL (4.06-5.63); WHITE BLOOD COUNT (AUTO) 12.2 K/uL (3.6-10.2)
--- NOTE | 2017-05-15 20:30 | NUR ---
Received pt lying on bed comfortably, alert and awake. Able to make needs known. No acute distress noted. No complaints of pain or discomfort. On o2 2LPM NC, no SOB noted. All due meds given as ordered and well tolerated. Kept clean, dry and comfortable. Encouraged to verbalize needs and concerns and to call for assistance if needed. Side rails up x2. Bed alarm on and in lowest position. Call light placed within reach. All needs attended.
[2017-05-15] MEDS: DONEPEZIL 10 MG TABLET PO SCH (20:35)
[2017-05-15] MEDS: MEMANTINE HCL 10 MG TABLET PO SCH (20:35)
[2017-05-15 20:56] LABS: ALANINE AMINOTRANSFERASE 15 U/L (16-63); ALKALINE PHOSPHATASE 138 U/L (50-136); ASPARTATE AMINOTRANSFERASE 21 U/L (15-37); BILIRUBIN,TOTAL 0.2 mg/dL (0.2-1.0); CARBON DIOXIDE 25 mmol/L (21-32); CHLORIDE 99 mmol/L (98-107); CREATININE 0.9 mg/dL (0.6-1.3); GLUCOSE 151 mg/dL (74-106); MAGNESIUM 1.5 mg/dL (1.8-2.4); PHOSPHOROUS 2.3 mg/dL (2.5-4.9); UREA NITROGEN, BLOOD 10 mg/dL (7-18)
--- NOTE | 2017-05-15 21:45 | NUR ---
MD made aware regarding pts lab results, still awaiting for call back.
--- NOTE | 2017-05-16 05:22 | NUR ---
Pt slept well throughout the shift with no acute distress noted. No complaints of pain or discomfort. No SOB noted. IV on LFA intact and patent. Kept clean, dry and comfortable. Frequently checked for safety. turned and repositioned pt. Call light placed within reach. All needs attended.
[2017-05-16] MEDS: PANTOPRAZOLE SODIUM 40 MG TABLET.DR PO SCH ×2 (06:51→17:39)
--- NOTE | 2017-05-16 08:00 | NUR ---
Received patient awake, alert x1-2. Denies any pain, not in any form of distress. With IV intact and patent on NS at 75 cc/hr. Call light within reach. Encouraged to call for needs.
[2017-05-16 08:06] VITALS: BP 150/82
[2017-05-16 08:43] LABS: *BILIRUBIN,URIN NEGATIVE (NEGATIVE); *BLOOD, URINE 1+ (NEGATIVE); *CLARITY,URINE SLIGHTLY CLOUDY (CLEAR); *COLOR,URINE YELLOW (YELLOW); *KETONES,URINE NEGATIVE (NEGATIVE); *PROTEIN,URINE NEGATIVE (NEGATIVE); *UROBILINOGEN,URINE 0.2 E.U./dl (NORMAL); LEUKOCYTE ESTERASE ,URINE 1+ (NEGATIVE); NITRITE, URINE NEGATIVE (NEGATIVE); PH,URINE 5.5 (5.0-8.0); UGLUCOSE NEGATIVE (NEGATIVE)
[2017-05-16 08:48] LABS: BACTERIA,URINE FEW /HPF (NONE SEEN); RBC,URINE 0-3 /HPF (0-3); SQUAMOUS EPITHELIAL CELL,UR FEW /HPF (NONE SEEN); WBC,URINE 0-3 /HPF (0-3)
[2017-05-16] MEDS: MULTIVITAMINS,THERAPEUTIC TABLET PO SCH (09:04)
[2017-05-16] MEDS: SERTRALINE HCL 50 MG TABLET PO SCH (09:04)
[2017-05-16] MEDS: CLOTRIMAZOLE/BETAMET DIPROP CREAM 15 GM TUBE TOP SCH (09:04)
--- NOTE | 2017-05-16 09:30 | NUR ---
Up with therapy. Tolerating therapy well. VS Stable. still on O2 at 2lpm.
--- NOTE | 2017-05-16 12:50 | NUR ---
Seen and examined by Dr. Matos. Magnesium IV ordered.
[2017-05-16] MEDS: MAGNESIUM SULFATE/D5W 100 ML IV SCH ×2 (13:33→15:13)
--- NOTE | 2017-05-16 17:32 | NUR ---
Patient refused vaccinations and said he doesn't want one for this year. Discussed risks and benefits but patient still refused.
--- NOTE | 2017-05-16 18:00 | NUR ---
Report given to Elvia ALARCON, [facility]. Routine discharge care done, pictures taken. Patient stable, alert x2-3. Denies any pain. Encouraged to call for needs at ask help when standing up.
== END 2017-05-16 20:20 | DRG 947 ==
PROVIDERS: ADMIT Physical Medicine & Rehabilitation Pain Medicine; ATTEND Physical Medicine & Rehabilitation Pain Medicine
DX: R53.81 Other malaise (principal); G93.49 Other encephalopathy; F03.90 Unspecified dementia, unspecified severity, without behavioral disturbance, psychotic disturbance, mood disturbance, and anxiety; R53.1 Weakness; I10 Essential (primary) hypertension; K21.9 Gastro-esophageal reflux disease without esophagitis; K59.00 Constipation, unspecified; F32.9 Major depressive disorder, single episode, unspecified; F41.9 Anxiety disorder, unspecified; K64.9 Unspecified hemorrhoids; G90.9 Disorder of the autonomic nervous system, unspecified
CPT/HCPCS: 36415; 70030-TC; 71045; 72220; 83735; 84100; 85025; 87086; 92507; 92523; 97110; 97116; 97165; 97530; 97535; A4217; A4663; J3475; J7030

== ENCOUNTER 2017-11-23 15:36 | Inpatient (IN) | payer MEDICARE, MEDICAID ==
[~2017-11-23] VITALS: Ht 172.7 cm; Wt 63.5 kg
[~2017-11-23 15:36] MED LIST changes: -ACET-2154 PO; -CRAN405C PO
[2017-11-23] MEDS ORDERED: IV NORMAL SALINE 500 ML BAG IV ONE (16:00)
--- NOTE | 2017-11-23 16:00 | NUR ---
PT IS IN ROOM #2A. DR CALDERÓN EVALUATED THE PT.
[2017-11-23] MEDS ORDERED: SACC250C PO (16:03)
[2017-11-23] MEDS ORDERED: DONE10TA11 PO (16:03)
[2017-11-23] MEDS ORDERED: SULF500T8 PO (16:03)
[2017-11-23] MEDS ORDERED: CHOL100062 PO (16:03)
[2017-11-23] MEDS ORDERED: PANT40TA2 PO (16:03)
[2017-11-23] MEDS ORDERED: MULT-213 PO (16:03)
[2017-11-23] MEDS ORDERED: MEMA10TA PO (16:03)
[2017-11-23] MEDS ORDERED: HYDR25SU33 RC (16:03)
[2017-11-23] MEDS ORDERED: MIRT15TA PO (16:03)
[2017-11-23] MEDS ORDERED: ACET-2154 PO (16:03)
[2017-11-23] MEDS ORDERED: CRAN405C PO (16:03)
[2017-11-23] MEDS ORDERED: MAGN400O6 PO (16:03)
--- NOTE | 2017-11-23 16:20 | NUR ---
CODE SEPSIS WAS CALLED BY DR CALDERÓN. CODE SEPSIS PROTOCOL STARTED.
[2017-11-23 16:24] LABS: EOSINOPHILS % (AUTO) 0.1 % (0.0-7.0); HEMATOCRIT 32.5 % (36.7-47.1); HEMOGLOBIN 10.6 g/dL (12.5-16.3); LYMPHOCYTES % (AUTO) 4.1 % (20.5-51.5); MEAN CORPUSCULAR HEMOGLOBIN 30.1 uug (23.8-33.4); MEAN CORPUSCULAR HGB CONC 33 g/dL (32.5-36.3); MEAN CORPUSCULAR VOLUME 92.4 fL (73.0-96.2); MONOCYTES # (AUTO) 1.6 K/uL (2.0-10.0); MONOCYTES % (AUTO) 6.7 % (0.0-11.0); NEUTROPHILS # (AUTO) 21.4 K/uL (1.8-8.9); NEUTROPHILS % (AUTO) 89.1 % (38.5-71.5); PLATELET COUNT (AUTO) 382 K/uL (152-348); RED BLOOD CELL COUNT(AUTO) 3.52 MIL/uL (4.06-5.63)
[2017-11-23 16:36] LABS: CARBON DIOXIDE 26 mmol/L (21-32); CHLORIDE 99 mmol/L (98-107); CREATININE 1.1 mg/dL (0.6-1.3); GLUCOSE 97 mg/dL (74-106); UREA NITROGEN, BLOOD 15 mg/dL (7-18)
[2017-11-23 16:41] LABS: ALANINE AMINOTRANSFERASE 19 U/L (16-63); ALKALINE PHOSPHATASE 142 U/L (50-136); ASPARTATE AMINOTRANSFERASE 18 U/L (15-37); BILIRUBIN,DIRECT 0.3 mg/dL (0.0-0.2); BILIRUBIN,TOTAL 0.8 mg/dL (0.2-1.0); TOTAL PROTEIN, SERUM 6.4 g/dL (6.4-8.2)
[2017-11-23] MEDS ORDERED: VANCOMYCIN IV 1,000 MG in IV DEXTROSE 5% 250 ML IV ONE (16:45)
[2017-11-23] MEDS ORDERED: PIPERACILLIN/TAZOBACTAM/D5W 3.375 G in PREMIXED 1 EACH IV ONE (16:45)
[2017-11-23] MEDS ORDERED: VANCOMYCIN IV 200 ML ONE (17:08)
[2017-11-23] MEDS ORDERED: PIPERACILLIN/TAZOBACTAM/D5W 50 ML IV ONE (17:08)
--- NOTE | 2017-11-23 18:14 | NUR ---
REPORT WAS GIVEN TO RN M/S. PT WAS TRANSFERED TO ROOM #211.
--- NOTE | 2017-11-23 18:16 | NUR ---
RECEIVED PATIENT FROM ER VIA GURNEY. ADMITTED TO ROOM 211. PATIENT AAOX1-2 LETHARGIC, BUT ABLE TO ANSWER QUESTIONS AND FOLLOW COMMANDS. ZOSYN AND VANCO IV 1G GIVEN AT ER. NOTIFIED DANI HILL OF PT'S ARRIVAL TO UNIT AWAITING ADMISSION ORDERS. ADMISSION ASSESSMENTS TO BE DONE. WILL CONTINUE TO MONITOR CLOSELY.
[2017-11-23 18:32] VITALS: BP 102/54
[2017-11-23 19:40] LABS: *BILIRUBIN,URIN NEGATIVE (NEGATIVE); *BLOOD, URINE Trace-intact (NEGATIVE); *CLARITY,URINE SLIGHTLY CLOUDY (CLEAR); *COLOR,URINE YELLOW (YELLOW); *KETONES,URINE NEGATIVE (NEGATIVE); *PROTEIN,URINE 2+ (NEGATIVE); *UROBILINOGEN,URINE 0.2 E.U./dl (NORMAL); LEUKOCYTE ESTERASE ,URINE 2+ (NEGATIVE); NITRITE, URINE NEGATIVE (NEGATIVE); PH,URINE 6.5 (5.0-8.0); UGLUCOSE NEGATIVE (NEGATIVE)
[2017-11-23 19:54] LABS: BACTERIA,URINE MANY /HPF (NONE SEEN); MUCUS,URINE FEW /LPF (0-FEW); WBC,URINE 50-80 /HPF (0-3)
[2017-11-23 20:00] VITALS: BP 115/58
[2017-11-23] MEDS ORDERED: HYDROCORTISONE RECTAL SUPP 25 MG EACH RC PRN (20:00)
[2017-11-23] MEDS ORDERED: MAGNESIUM HYDROXIDE 30 ML LIQUID UDC PO PRN ×2 (20:00→20:15)
[2017-11-23] MEDS ORDERED: ACETAMINOPHEN 325 MG TABLET PO PRN ×2 (20:00→20:15)
--- NOTE | 2017-11-23 20:00 | NUR ---
PATIENT IS ASLEEP IN BED, AROUSABLE TO VERBAL STIMULI. VERY LETHARGIC AND WEAK. UNABLE TO EXPRESS NEEDS. NO S/S OF PAIN OR ACUTE DISTRESS NOTED ON ASSESSMENT. NO FEVER AT PRESENT. SAFETY, ASPIRATION AND COMFORT MEASURES IN PLACE. CONTACT ISOLATION INITIATED ORDERED. WILL CONTINUE TO MONITOR PATIENT
[2017-11-23] MEDS ORDERED: IV D5 1/2 NS 1000 ML 1,000 ML IV PRN (20:02)
[2017-11-23] MEDS ORDERED: HYDROCODONE/APAP 5-325MG TABLET PO PRN (20:15)
[2017-11-23] MEDS ORDERED: ONDANSETRON 4 MG/2 ML VIAL IV PRN (20:15)
[2017-11-23] MEDS: SULFASALAZINE 500 MG TABLET PO SCH (21:00)
[2017-11-23] MEDS: IV NS 1000 ML 1,000 ML IV SCH (21:22)
[2017-11-23] MEDS: DONEPEZIL 10 MG TABLET PO SCH (21:23)
[2017-11-23] MEDS: MIRTAZAPINE 15 MG TABLET PO SCH (21:23)
[2017-11-23] MEDS: MEROPENEM 1 G in IV DEXTROSE 5% 50 ML IV SCH (21:36)
[2017-11-23] MEDS ORDERED: MEROPENEM 1 G in IV DEXTROSE 5% 50 ML IV SCH (22:00)
[2017-11-23 23:56] VITALS: BP 101/70
[2017-11-24 04:00] VITALS: BP 127/82
[2017-11-24] MEDS: IV NS 1000 ML 1,000 ML IV SCH ×3 (05:22→21:02)
--- NOTE | 2017-11-24 06:16 | NUR ---
PATIENT SLEPT MOST OF THE SHIFT, MORE ALERT THIS A.M. VSS MORE STABLE, NO FEVER. NO S/S OF PAIN OR ACUTE DISTRESS NOTED ON THIS SHIFT. PATIENT IN STABLE HEMODYNAMICS STATUS. SAFETY AND COMFORT MEASURES MAINTAINED AT ALL TIMES
[2017-11-24 06:34] LABS: BASOPHILS # (AUTO) 0.1 K/uL (0.0-8.0); BASOPHILS % (AUTO) 0.7 % (0.0-2.0); EOSINOPHILS # (AUTO) 0.3 K/uL (0.0-0.7); EOSINOPHILS % (AUTO) 3.2 % (0.0-7.0); HEMATOCRIT 28.6 % (36.7-47.1); HEMOGLOBIN 9.6 g/dL (12.5-16.3); LYMPHOCYTES # (AUTO) 1.5 K/uL (20.0-40.0); LYMPHOCYTES % (AUTO) 13.5 % (20.5-51.5); MEAN CORPUSCULAR HEMOGLOBIN 31.2 uug (23.8-33.4); MEAN CORPUSCULAR HGB CONC 34 g/dL (32.5-36.3); MONOCYTES # (AUTO) 1.4 K/uL (2.0-10.0); MONOCYTES % (AUTO) 12.5 % (0.0-11.0); NEUTROPHILS # (AUTO) 7.6 K/uL (1.8-8.9); NEUTROPHILS % (AUTO) 70.1 % (38.5-71.5); PLATELET COUNT (AUTO) 294 K/uL (152-348); RED BLOOD CELL COUNT(AUTO) 3.08 MIL/uL (4.06-5.63); WHITE BLOOD COUNT (AUTO) 10.9 K/uL (3.6-10.2)
[2017-11-24 06:46] LABS: CARBON DIOXIDE 25 mmol/L (21-32); CHLORIDE 103 mmol/L (98-107); CHOLESTEROL 118 mg/dL (<200); GLUCOSE 78 mg/dL (74-106); HDL CHOLESTEROL 38 mg/dL (40-60); MAGNESIUM 1.6 mg/dL (1.8-2.4); PHOSPHOROUS 3.9 mg/dL (2.5-4.9); POTASSIUM 3.5 mmol/L (3.5-5.1); TRIGLYCERIDES 57 MG/DL (30-150); UREA NITROGEN, BLOOD 11 mg/dL (7-18)
[2017-11-24 07:01] LABS: THYROID STIMULATING HORMONE 1.407 mIU/mL (0.358-3.740)
--- NOTE | 2017-11-24 08:00 | NUR ---
AWAKE ALERT ADN VERBALLY RESPONSIVE, COOPERATIVE AND FOLLOWS COMMAND, SR ON MONITOR
[2017-11-24] MEDS: CHOLECALCIFEROL 1,000 UNIT TABLET PO SCH (08:30)
[2017-11-24] MEDS: SULFASALAZINE 500 MG TABLET PO SCH ×4 (08:30→21:01)
[2017-11-24] MEDS: Z GUARD REMEDY PASTE 57 GM TUBE TOP PRN (08:31)
[2017-11-24] MEDS: MULTIVIT, IRON, MIN NO. 8, FA TABLET PO SCH (08:31)
[2017-11-24] MEDS: MEMANTINE HCL 10 MG TABLET PO SCH ×2 (08:31→16:57)
[2017-11-24] MEDS ORDERED: Medication Not On Formulary EA (Cranberry Extract (Cranberry) 405 MG) PO SCH (09:00)
[2017-11-24] MEDS ORDERED: PANTOPRAZOLE SODIUM 40 MG VIAL IV SCH (09:00)
[2017-11-24] MEDS ORDERED: PANTOPRAZOLE SODIUM 40 MG TABLET.DR PO SCH (09:00)
[2017-11-24] MEDS ORDERED: Medication Not On Formulary EA (Multivitamins W-Minerals (Multivitamin With Minerals) 1 PO SCH (09:00)
[2017-11-24] MEDS ORDERED: Medication Not On Formulary EA (Saccharomyces Boulardii (Florastor) 250 MG) PO SCH (09:00)
[2017-11-24] MEDS: MEROPENEM 1 G in IV DEXTROSE 5% 50 ML IV SCH (10:16)
[2017-11-24 11:04] VITALS: BP 119/65
[2017-11-24 11:11] VITALS: BP 102/61
--- NOTE | 2017-11-24 12:00 | NUR ---
SEEN BY PT, OT, SPEECH SEE NOTES
[2017-11-24] MEDS ORDERED: MAGNESIUM OXIDE 400 MG TABLET PO ONE (13:15)
--- NOTE | 2017-11-24 15:00 | NUR ---
SEEN BY DR CISNEROS, DR LEMONS FOR CONSULT SEE NOTES
[2017-11-24 15:03] VITALS: BP 124/77
[2017-11-24] MEDS: PANTOPRAZOLE SODIUM 40 MG TABLET.DR PO SCH (16:57)
--- NOTE | 2017-11-24 17:37 | NUR ---
continue iv antibiotic merrem as ordered, no ss of pain or distress. afebrile sr on monitor
--- NOTE | 2017-11-24 19:49 | NUR ---
AWAKE IN BED, AAOX1 FORGETFUL AND CONFUSED. ON TELE WITH SR. NO S/S OF PAIN OR ACUTE DISTRESS ON ASSESSMENT. SAFETY AND COMFORT MEASURES IN PLACE, WILL CONTINUE TO MONITOR PATIENT
[2017-11-24 20:00] VITALS: BP 131/78
[2017-11-24] MEDS: DONEPEZIL 10 MG TABLET PO SCH (21:01)
[2017-11-24] MEDS: MIRTAZAPINE 15 MG TABLET PO SCH (21:01)
[2017-11-24] MEDS: MEROPENEM 1 G in IV NORMAL SALINE 100 ML IV SCH (21:02)
[2017-11-25] VITALS (7 sets, daily range): BP systolic 110–151; BP diastolic 64–94
[2017-11-25] MEDS: IV NS 1000 ML 1,000 ML IV SCH ×4 (04:54→23:34)
[2017-11-25] MEDS: PANTOPRAZOLE SODIUM 40 MG TABLET.DR PO SCH ×2 (06:03→17:08)
--- NOTE | 2017-11-25 06:20 | NUR ---
PATIENT SLEPT WELL ON THIS SHIFT MORE ALERT AND RESPONSIVE, NO S/S OF PAIN OR ACUTE DISTRESS ON THIS SHIFT. NO FEVER ON THIS SHIFT, VSS WNL. SAFETY AND COMFORT MEASURES MAINTAINED AT ALL TIMES
[2017-11-25 06:21] LABS: BASOPHILS % (AUTO) 0.3 % (0.0-2.0); EOSINOPHILS # (AUTO) 0.5 K/uL (0.0-0.7); EOSINOPHILS % (AUTO) 4.3 % (0.0-7.0); HEMATOCRIT 28.6 % (36.7-47.1); HEMOGLOBIN 9.6 g/dL (12.5-16.3); LYMPHOCYTES # (AUTO) 1.9 K/uL (20.0-40.0); LYMPHOCYTES % (AUTO) 17.8 % (20.5-51.5); MEAN CORPUSCULAR HEMOGLOBIN 30.6 uug (23.8-33.4); MEAN CORPUSCULAR HGB CONC 34 g/dL (32.5-36.3); MEAN CORPUSCULAR VOLUME 91.5 fL (73.0-96.2); MONOCYTES # (AUTO) 1.4 K/uL (2.0-10.0); MONOCYTES % (AUTO) 13.1 % (0.0-11.0); NEUTROPHILS # (AUTO) 6.9 K/uL (1.8-8.9); NEUTROPHILS % (AUTO) 64.5 % (38.5-71.5); PLATELET COUNT (AUTO) 305 K/uL (152-348); RED BLOOD CELL COUNT(AUTO) 3.13 MIL/uL (4.06-5.63); WHITE BLOOD COUNT (AUTO) 10.7 K/uL (3.6-10.2)
[2017-11-25 06:37] LABS: CARBON DIOXIDE 24 mmol/L (21-32); CHLORIDE 108 mmol/L (98-107); CREATININE 0.8 mg/dL (0.6-1.3); GLUCOSE 82 mg/dL (74-106); MAGNESIUM 1.6 mg/dL (1.8-2.4); PHOSPHOROUS 2.5 mg/dL (2.5-4.9); POTASSIUM 4.2 mmol/L (3.5-5.1); UREA NITROGEN, BLOOD 9 mg/dL (7-18)
--- NOTE | 2017-11-25 07:00 | NUR ---
RECEIVED PATIENT IN BED, AWAKE, ALERT AND ORIENTED X2, FORGETFUL. NO ACUTE DISTRESS. DENIES CHEST PAIN OR SOB AT THIS TIME. PATIENT ON RA, SATURATING AT 93-94%. IV FLUIDS NS AT 125 CC/HR, IV SITE ON DBEBIE INTACT. WILL CONTINUE TO MONITOR
[2017-11-25] MEDS: MEMANTINE HCL 10 MG TABLET PO SCH ×2 (08:25→17:08)
[2017-11-25] MEDS: MULTIVIT, IRON, MIN NO. 8, FA TABLET PO SCH (08:25)
[2017-11-25] MEDS: SULFASALAZINE 500 MG TABLET PO SCH ×4 (08:25→20:01)
[2017-11-25] MEDS: CHOLECALCIFEROL 1,000 UNIT TABLET PO SCH (08:25)
[2017-11-25] MEDS ORDERED: MAGNESIUM OXIDE 400 MG TABLET PO ONE (09:30)
[2017-11-25] MEDS: MEROPENEM 1 G in IV NORMAL SALINE 100 ML IV SCH (10:09)
[2017-11-25] MEDS: CEPHALEXIN MONOHYDRATE 500 MG CAPSULE PO SCH (17:44)
--- NOTE | 2017-11-25 17:53 | NUR ---
End of shift note: Patient is alert and oriented x2, forgetful. Denies any chest pain or SOB at this time. Denies any flank pain or dysuria. Continues on IV fluids NS at 125cc/hr, able to tolerate well. PO Keflex started for UTI, no A/R noted. Turned and repositioned every 2 hours. Kept clean and dry. IV site on DEBBIE intact and patent. All needs attended and met. Will endorse for continuity of care
--- NOTE | 2017-11-25 19:20 | NUR ---
Received pt lying in bed. AAOX1-2. Reported mild pain on right shoulder but tolerable at this time. Offered pain medication but decline. In no acute distress. IV site on LFA intact and patent. IVF infusing. Safety measure initiated and call wiseman within reach.
[2017-11-25] MEDS: DONEPEZIL 10 MG TABLET PO SCH (20:00)
[2017-11-25] MEDS: MIRTAZAPINE 15 MG TABLET PO SCH (20:00)
[2017-11-25] MEDS: MAGNESIUM OXIDE 400 MG TABLET PO SCH (20:01)
--- NOTE | 2017-11-25 20:51 | NUR ---
@1920 - Patient BP was 151/94, HR 84, denies any headache or dizziness. After giving Tylenol 650mg po for pain on left shoulder patient BP went down to 137/94, HR 86 at this time.
[2017-11-26 04:35] VITALS: BP 106/80
[2017-11-26] MEDS: CEPHALEXIN MONOHYDRATE 500 MG CAPSULE PO SCH ×2 (06:08→17:08)
[2017-11-26] MEDS: PANTOPRAZOLE SODIUM 40 MG TABLET.DR PO SCH ×2 (06:08→16:32)
--- NOTE | 2017-11-26 06:11 | NUR ---
AAOX1-2.Denies any further pain. No SOB. Slept well last night. IV site on LFA remains intact and patent. IVF infusing. No adverse reaction noted from PO ABX. Safety measure maintained and call wiseman within reach.
[2017-11-26 06:17] LABS: BASOPHILS # (AUTO) 0.1 K/uL (0.0-8.0); BASOPHILS % (AUTO) 0.5 % (0.0-2.0); EOSINOPHILS # (AUTO) 0.8 K/uL (0.0-0.7); EOSINOPHILS % (AUTO) 7.8 % (0.0-7.0); HEMATOCRIT 29.9 % (36.7-47.1); HEMOGLOBIN 10.2 g/dL (12.5-16.3); LYMPHOCYTES # (AUTO) 2.4 K/uL (20.0-40.0); LYMPHOCYTES % (AUTO) 23.4 % (20.5-51.5); MEAN CORPUSCULAR HEMOGLOBIN 31.8 uug (23.8-33.4); MEAN CORPUSCULAR HGB CONC 34 g/dL (32.5-36.3); MEAN CORPUSCULAR VOLUME 93.5 fL (73.0-96.2); MONOCYTES # (AUTO) 1.4 K/uL (2.0-10.0); MONOCYTES % (AUTO) 13.9 % (0.0-11.0); NEUTROPHILS # (AUTO) 5.6 K/uL (1.8-8.9); NEUTROPHILS % (AUTO) 54.4 % (38.5-71.5); PLATELET COUNT (AUTO) 334 K/uL (152-348); WHITE BLOOD COUNT (AUTO) 10.4 K/uL (3.6-10.2)
[2017-11-26 06:43] LABS: CARBON DIOXIDE 23 mmol/L (21-32); CHLORIDE 108 mmol/L (98-107); CREATININE 0.8 mg/dL (0.6-1.3); GLUCOSE 74 mg/dL (74-106); MAGNESIUM 1.7 mg/dL (1.8-2.4); PHOSPHOROUS 2.5 mg/dL (2.5-4.9); UREA NITROGEN, BLOOD 8 mg/dL (7-18)
--- NOTE | 2017-11-26 07:25 | NUR ---
RECEIVED PATIENT IN BED AWAKE ALERT AND ORIENTED AT THIS TIME VERBALISED NEEDS REMAIN ON IVF ORDERED WITH NO S/S OF INFILTERATION ON SITE.CALL LIGHTS ARE WITHIN EASY REACH MADE COMFORTABLE AND WILL CONTINUE TO OBSERVE.
[2017-11-26] MEDS: MULTIVIT, IRON, MIN NO. 8, FA TABLET PO SCH (08:16)
[2017-11-26] MEDS: SULFASALAZINE 500 MG TABLET PO SCH ×4 (08:16→21:00)
[2017-11-26] MEDS: CHOLECALCIFEROL 1,000 UNIT TABLET PO SCH (08:16)
[2017-11-26] MEDS: MEMANTINE HCL 10 MG TABLET PO SCH ×2 (08:16→16:32)
[2017-11-26] MEDS: IV NS 1000 ML 1,000 ML IV SCH ×2 (08:17→16:54)
[2017-11-26] MEDS: Z GUARD REMEDY PASTE 57 GM TUBE TOP PRN (08:38)
--- NOTE | 2017-11-26 11:23 | NUR ---
PATIENT SEEN AND EXAMINED BY TERESA HILL WITH NEW ORDERS AND NOTED SHE IS AWARE OF MAG OF 1.7 STATED WILL REEVALUATE
[2017-11-26 11:38] VITALS: BP 144/74
[2017-11-26] MEDS ORDERED: MAGNESIUM OXIDE 400 MG TABLET PO ONE (13:00)
--- NOTE | 2017-11-26 13:41 | NUR ---
NEW ORDER TO GIVE AN EXTRA MAGNESSIUM RECEIVED AND CARRIED OUT PATIENT IS RESTING IN BED WITH NO DISTRESS AT THIS TIME.
[2017-11-26 16:00] VITALS: BP 142/80
--- NOTE | 2017-11-26 18:00 | NUR ---
PATIENT IS ALERT TO SELF BUT IS DISORIENTED WANTING TO GO TO THE [place] BUT PATIENT IS UNABLE TO WALK ATTEMPTED WITH A WALKER NOTED THAT PATIENT IS INCONTINENT OF BOWEL EMILIANO CARE PROVIDED AND PATIENT REASSURED BED ALARM IS IN USE FOR SAFETY
--- NOTE | 2017-11-26 19:10 | NUR ---
Received pt lying in bed. AAOX1-2, pleasantly confused. Denies any pain or SOB at this time. In no acute distress. IV site on LFA nad right hand intact and patent. IVF infusing. Safety measure initiated and call wiseman within reach.
[2017-11-26 19:58] VITALS: BP 151/92
[2017-11-26] MEDS: DONEPEZIL 10 MG TABLET PO SCH (21:00)
[2017-11-26] MEDS: MAGNESIUM OXIDE 400 MG TABLET PO SCH (21:00)
[2017-11-26] MEDS: MIRTAZAPINE 15 MG TABLET PO SCH (21:00)
[2017-11-26] MEDS: Z GUARD REMEDY PASTE 57 GM TUBE TOP SCH (21:30)
--- NOTE | 2017-11-26 21:30 | NUR ---
Patient very lethargic, Arousable to painful stimuli but doses back to sleep. Unable to give scheduled medication. VS as follow: BP 139/71, HR 64, RR 16. Temp-98.2. O2 sat at 94% on RA. Provided O2 at 2LPM via nc. O2 sat went up to 96%/ BS 93. Continue to monitor patient.
[2017-11-26 21:34] VITALS: BP 139/71
[2017-11-27] MEDS: IV NS 1000 ML 1,000 ML IV SCH ×2 (01:49→12:17)
[2017-11-27 04:54] VITALS: BP 101/73
[2017-11-27 05:59] LABS: BASOPHILS # (AUTO) 0.1 K/uL (0.0-8.0); BASOPHILS % (AUTO) 0.6 % (0.0-2.0); EOSINOPHILS # (AUTO) 0.7 K/uL (0.0-0.7); EOSINOPHILS % (AUTO) 7.3 % (0.0-7.0); HEMATOCRIT 32.1 % (36.7-47.1); HEMOGLOBIN 10.6 g/dL (12.5-16.3); LYMPHOCYTES # (AUTO) 2.3 K/uL (20.0-40.0); LYMPHOCYTES % (AUTO) 24.6 % (20.5-51.5); MEAN CORPUSCULAR HEMOGLOBIN 30.7 uug (23.8-33.4); MEAN CORPUSCULAR HGB CONC 33 g/dL (32.5-36.3); MEAN CORPUSCULAR VOLUME 92.9 fL (73.0-96.2); MONOCYTES # (AUTO) 0.9 K/uL (2.0-10.0); MONOCYTES % (AUTO) 9.9 % (0.0-11.0); NEUTROPHILS # (AUTO) 5.4 K/uL (1.8-8.9); NEUTROPHILS % (AUTO) 57.6 % (38.5-71.5); PLATELET COUNT (AUTO) 354 K/uL (152-348); RED BLOOD CELL COUNT(AUTO) 3.45 MIL/uL (4.06-5.63); WHITE BLOOD COUNT (AUTO) 9.4 K/uL (3.6-10.2)
[2017-11-27] MEDS: CEPHALEXIN MONOHYDRATE 500 MG CAPSULE PO SCH (06:05)
[2017-11-27] MEDS: PANTOPRAZOLE SODIUM 40 MG TABLET.DR PO SCH (06:05)
--- NOTE | 2017-11-27 06:18 | NUR ---
AAOX1-2.Patient slept the whole night. In no acute distress. VS WNL. O2 at 2LPM via NC in place. O2 sat at 94%. IV site on right hand and LFA remains intact and patent. IVF infusing. Safety measure maintained and call wiseman within reach.
[2017-11-27 06:35] LABS: CARBON DIOXIDE 24 mmol/L (21-32); CHLORIDE 107 mmol/L (98-107); CREATININE 0.7 mg/dL (0.6-1.3); GLUCOSE 77 mg/dL (74-106); MAGNESIUM 1.7 mg/dL (1.8-2.4); PHOSPHOROUS 2.6 mg/dL (2.5-4.9); UREA NITROGEN, BLOOD 7 mg/dL (7-18)
--- NOTE | 2017-11-27 07:45 | NUR ---
AWAKE ALERT VERBALLY RESPONDS BUT FORGETFUL VERBALISED SIMPLE NEEDS BUT TOTALLY DEPENDENT FOR ALL ADL REPOSITIONED FOR COMFORT.REMAIN ON IVF ORDERED WITH NO S/S OF INFILTERATION ON SITE MADE COMFORTABLE AND WILL CONTINUE TO OBSERVE PATIENT.
[2017-11-27] MEDS: CHOLECALCIFEROL 1,000 UNIT TABLET PO SCH (08:36)
[2017-11-27] MEDS: MEMANTINE HCL 10 MG TABLET PO SCH (08:36)
[2017-11-27] MEDS: MULTIVIT, IRON, MIN NO. 8, FA TABLET PO SCH (08:37)
[2017-11-27] MEDS: Z GUARD REMEDY PASTE 57 GM TUBE TOP SCH (08:37)
[2017-11-27] MEDS: SULFASALAZINE 500 MG TABLET PO SCH ×2 (08:38→12:30)
--- NOTE | 2017-11-27 08:40 | NUR ---
MAGNESSIUM LEVEL IS 1.7 SEEN BY DANI HILL WITH NEW ORDERS AND NOTED.
[2017-11-27] MEDS ORDERED: MAGNESIUM OXIDE 400 MG TABLET PO ONE (08:45)
[2017-11-27] MEDS ORDERED: CEPH500C2 PO (09:10)
--- NOTE | 2017-11-27 09:53 | NUR ---
NEW ORDERS TO DISCHARGE PATIENT TO [facility] RECEIVED AND CARRIED OUT AWAITING FOR [employer] EXTERNAL/SOFTWARE LICENSING SPECIALIST TO ARRANG DISCHARGE.
[2017-11-27 11:26] VITALS: BP 113/71
--- NOTE | 2017-11-27 12:13 | NUR ---
CALLED [facility] AND REPORT GIVEN TO OLEGARIO FOR CONTINUING CARE PATIENT SHOULD CONTINUE ON ORAL ANTIBIOTICS ORDERED FOR 5 MORE DAYS STARTING TONITE AND FOLLOW UP WITH DR PHAN IN ONE WEEK FOR REEVALUATION OF THE UTI AND SHE EXPRESSED UNDERSTANDING. ALSO PER THE DISCHARGE REHABILITATION AIDE SHE LEFT A MESSAGE FOR THE PUBLIC GUARDIAN TO INFORM HER THAT PATIENT IS BEING DISCHARGED BACK TO [facility]
--- NOTE | 2017-11-27 13:25 | NUR ---
PATIENT DISCHARGED TO [facility] PICKED UP BY THE AMBULANCE IN SATISFACTORY CONDITION WITH DISCHARGE INSTRUCTIONS PATIENT HAS NO PERSONA BELONGINGS AND REPORT WAS ALREADY GIVEN TO THE GROUP HOME FOR CONTINUING CARE.
== END 2017-11-27 13:25 | DRG 871 ==
LOC: ER 15:38 → MED 17:52 → TELE 22:35 → MED 11-25 17:52
PROVIDERS: ADMIT Internal Medicine; ATTEND Registered Nurse
DX: A41.59 Other Gram-negative sepsis (principal); G92 Toxic encephalopathy; N39.0 Urinary tract infection, site not specified; E44.0 Moderate protein-calorie malnutrition; F03.91 Unspecified dementia, unspecified severity, with behavioral disturbance; K51.90 Ulcerative colitis, unspecified, without complications; Z66 Do not resuscitate; R65.20 Severe sepsis without septic shock; E83.42 Hypomagnesemia; Z16.11 Resistance to penicillins; Z68.21 Body mass index [BMI] 21.0-21.9, adult; K21.9 Gastro-esophageal reflux disease without esophagitis; Z79.899 Other long term (current) drug therapy; E55.9 Vitamin D deficiency, unspecified; G47.00 Insomnia, unspecified; F20.9 Schizophrenia, unspecified; D64.9 Anemia, unspecified; K58.1 Irritable bowel syndrome with constipation; F41.9 Anxiety disorder, unspecified; F32.9 Major depressive disorder, single episode, unspecified; K64.9 Unspecified hemorrhoids; I10 Essential (primary) hypertension; Z87.440 Personal history of urinary (tract) infections
CPT/HCPCS: 36415; 70030-TC; 70450; 71045; 83605; 83735; 84100; 84443; 85025; 85730; 87040; 87077; 87086; 93005; 93307; 97110; 97116; 97530; A4663; C1758; C9113; J2185; J2543; J3370; J3490; J7030; J7060